=== PATIENT | male | born 1950 | race Asian ===

== ENCOUNTER 2023-08-19 10:33 | Day surgery (SDC) | payer OTHER, SELFPAY ==
[2023-08-19] VITALS (12 sets, daily range): BP systolic 12–163; BP diastolic 44–78; BMI 27.7
[2023-08-19 10:51] LABS: Hematocrit 34.2 % (39.0-52.0); Hemoglobin 11.8 g/dL (13.0-18.0); Mean Corp Hgb Conc. 34.5 g/dL (33.0-37.0); Mean Corpuscular Hgb 29.9 pg (27.0-31.0); Mean Corpuscular Volume 86.8 fL (80.0-94.0); Mean Platelet Volume 11.2 fL (7.4-10.4); Platelet Count 181 10^3/uL (130-400); Red Blood Cell Count 3.94 10^6/uL (4.70-6.10); Red Cell Dist. Width 14.3 % (11.5-14.5); White Blood Cell Count 5.9 10^3/uL (4.8-10.8)
[2023-08-19 11:04] LABS: APTT 36.2 Sec (23.4-35.0); INR 1.07; PT 14.1 Sec (11.4-14.6)
[2023-08-19 11:23] LABS: Blood Urea Nitrogen 45 mg/dl (9-20); Calcium 9.2 mg/dl (8.4-10.2); Carbon Dioxide 36 mmol/L (22-30); Chloride 90 mmol/L (98-107); Glucose 140 mg/dl (70-99); Potassium 4.8 mmol/L (3.5-5.1); Sodium 135 mmol/L (135-145); eGFR 6.82
[2023-08-19] MEDS: NSS 500 IV (12:00)
[2023-08-19 12:08] LABS: Glucose - Point of Care 126 mg/dl (70-99)
--- NOTE | 2023-08-19 12:32 | W.SUR.PREOP ---
Pre-Operative Surgical Note
-
I have examined this patient prior to the performance of the scheduled procedure.
The patient's condition is unchanged from the time of the current History and
Physical and the patient is able to undergo the scheduled procedure.
--- NOTE | 2023-08-19 12:38 | OR.RPT ---
Addendum entered and electronically signed by Jayant Carey MD 08/19/23 14:02:
ERRONEOUS NOTE. DISREGARD BELOW.
Original Note:
Operative Report
Operative Report
PROCEDURE DATE: 08/19/2023
Preoperative diagnosis:
1. End-stage renal disease on hemodialysis.
2. Concern for failing left upper extremity arteriovenous fistula.
Postoperative diagnosis: Same
Procedure:
1. Left upper extremity fistulogram and central venogram.
2. Balloon angioplasty of proximal outflow vein stenosis with 5 mm angioplasty balloon.
3. Balloon angioplasty of mid outflow vein stenosis with 5 mm angioplasty balloon.
4. Supervision and interpretation.
Surgeon: Aurelio
Bass Singer: None
Complications: None
Anesthesia: Local, sedation
Fluoroscopy:
4.0 min
4 mGy
0.55 Gy.cm2
Indications for procedure:
End-stage renal disease on hemodialysis. Had performed left upper extremity arteriovenous fistula. Subsequent fistulogram for stenosis was performed by me. Flow volume significantly improved. She had successfully used the fistula for dialysis.
However, recently noted decreased flow rates on dialysis. She was referred for evaluation. Duplex demonstrated significant stenosis in the proximal outflow. Therefore she was brought for fistulogram. Risk/benefits/alternatives were also
discussed. Patient understood all wish to proceed.
Description of procedure:
Patient was identified, brought to the operating room. Placed on the table in the supine position. After the adequate administration of anesthesia, the patient was prepped and draped in the standard surgical fashion. A standard preoperative
timeout was undertaken and everybody was in agreement with the plan.
The left upper extremity basilic vein fistula was punctured in the proximal upper arm and a peripheral facing direction using a direct duplex ultrasound guidance and a micropuncture kit. I then advanced a 4 Latvian sheath over a 0.035 inch wire.
Fistulogram was performed that demonstrated patent anastomotic region. Prior area of stenosis look better but just at the edge of that prior area, there was a high-grade stenosis. Beyond here the fistula is nicely patent. Just beyond the sheath
there was an area of diffuse moderate narrowing but not severe. Central venogram demonstrated patent central veins with no significant stenosis. At this point, I gained wire access into the brachial artery distal to the anastomosis. I then
exchanged for a 0.018 inch wire. Patient was given 3000 units of intravenous heparin. I then balloon angioplastied the proximal outflow stenosis with a 5 mm angioplasty balloon. The waist resolved nicely with the balloon. Completion angiogram
demonstrated resolution of the stenosis with good angiographic result. At this point I then was able to carefully foot my sheath and a central facing direction. I then gained wire access more centrally and exchanged over a glide catheter (after
confirming I was in the true lumen) for a 0.018 inch wire. I then performed balloon angioplasty of the stenotic area near the sheath (proved to be somewhat challenging due to the proximity of the sheath to the stenosis). There was a waist that
resolved. At this point completion angiogram demonstrated good result. There is brisk flow and a good thrill on exam. At this point is very satisfied. Wires and catheters were withdrawn. A 4-0 Monocryl pursestring stitch was placed around the
sheath entry site and was tied down as the sheath was withdrawn. Manual pressure was also applied. Hemostasis was achieved. The patient tolerated the procedure well.
--- NOTE | 2023-08-19 13:52 | OR.RPT ---
Operative Report
Operative Report
PROCEDURE DATE: 08/19/2023
Preoperative diagnosis:
1. End-stage renal disease on hemodialysis.
2. Prolonged bleeding after hemodialysis.
3. Central venous stent in-stent restenosis.
Postoperative diagnosis: Same
Procedure:
1. Left upper extremity fistulogram and central venogram.
2. Balloon angioplasty of central venous stenosis (in-stent restenosis) with 10 mm x 4 cm angioplasty balloon.
3. Supervision and interpretation.
Surgeon: Aurelio
[employer] Yard Supervisor: None
Complications: None
Anesthesia: Local, sedation
Fluoroscopy:
4.7 min
38 mGy
4.62 Gy.cm2
Indications for procedure:
End-stage renal disease on hemodialysis. Prolonged bleeding after hemodialysis to the point that he ended up in the emergency room and a stitch had to be placed in the fistula to stop the bleeding. Duplex demonstrated what appeared to be in-stent
restenosis of a central venous stent. He was therefore brought for fistulogram. Risk/benefits/alternatives were also discussed. Patient understood all wish to proceed.
Description of procedure:
Patient was identified, brought to the operating room. Placed on the table in the supine position. After the adequate administration of anesthesia, the patient was prepped and draped in the standard surgical fashion. A standard preoperative
timeout was undertaken and everybody was in agreement with the plan.
The cephalic outflow vein of the fistula was punctured in the distal upper arm just proximal to the antecubital fossa and a central facing direction using a micropuncture kit under direct duplex ultrasound guidance. A 6 Georgian sheath was then
advanced over a 0.035 inch wire. Fistulogram demonstrated tandem aneurysms of the fistula that were unchanged from prior. Widely patent outflow in the upper arm. Central venous stent at the cephalic arch was noted. In the mid to distal section
of the stent there was a severe string-like stenosis. Beyond here the more distal/central aspect of the stent was patent. Central venogram demonstrated no other central venous stenosis. At this point I selectively gained wire access beyond the
stent into the SVC. I then exchanged for a [email or web address] wire. I then performed balloon angioplasty of the stenosis with a 10 mm x 4 cm angioplasty balloon. Prolonged inflation was undertaken. Completion angiogram demonstrated an excellent result with
no residual stenosis. At this point is very satisfied. In addition, the pulsatility of the fistula had decreased and was now more thrill like. At this point I compress the fistula beyond the sheath and obtained a reflux fistulogram that
demonstrated widely patent arterial anastomosis.
Catheter and wires were all removed. 4-0 Monocryl pursestring stitch was placed around the sheath entry site and was tied down as the sheath was withdrawn, and manual pressure was also applied gently. Hemostasis was fully achieved.
The patient tolerated procedure well.
[2023-08-19 13:55] LABS: Glucose - Point of Care 108 mg/dl (70-99)
[2023-08-19] MEDS: NITROSTAT (SUBLINGUAL) 0.400000000000000022 MG SL (14:12)
== END 2023-08-19 15:45 | disposition home or self-care (01) ==
LOC: CATH 10:33
PROVIDERS: ATTENDING PHYSICIAN Surgery Vascular Surgery; FAMILY PHYSICIAN Family Medicine
DX: I12.0 Hypertensive chronic kidney disease with stage 5 chronic kidney disease or end stage renal disease (principal); N18.6 End stage renal disease; Z99.2 Dependence on renal dialysis; I25.10 Atherosclerotic heart disease of native coronary artery without angina pectoris; Z95.1 Presence of aortocoronary bypass graft; Z95.5 Presence of coronary angioplasty implant and graft; E11.22 Type 2 diabetes mellitus with diabetic chronic kidney disease; Z87.891 Personal history of nicotine dependence; Z79.4 Long term (current) use of insulin; Z79.82 Long term (current) use of aspirin; Z79.02 Long term (current) use of antithrombotics/antiplatelets
CPT/HCPCS: 36907; 36901; C1894; C1725; C1769; 76937; 80048; 82962; 85027; 85610; 85730; 86850; 86900; 86901; Q9967

== ENCOUNTER → 2024-05-09 12:49 | Outpatient (REF) | payer OTHER, SELFPAY | LOC: RAD 12:49 | PROVIDERS: ATTENDING PHYSICIAN Family Medicine | DX: R06.02 Shortness of breath (principal) | CPT/HCPCS: 71250 ==

== ENCOUNTER 2025-05-09 23:22 | Inpatient (IN) | payer OTHER, SELFPAY ==
[2025-05-09 19:24] VITALS: BP 116/57
[2025-05-09 19:42] LABS: Hematocrit 36.3 % (39.0-52.0); Hemoglobin 11.9 g/dL (13.0-18.0); Mean Corp Hgb Conc. 32.8 g/dL (33.0-37.0); Mean Corpuscular Volume 80.8 fL (80.0-94.0); Nucleated Red Blood Cells % 0 % (-); Platelet Count 167 10^3/uL (130-400); Red Cell Dist. Width 18.7 % (11.5-14.5)
[2025-05-09 20:01] LABS: ALT (SGPT) 16 U/L (0-50); AST (SGOT) 28 U/L (17-59); Albumin 4.1 g/dl (3.5-5.0); Alkaline Phosphatase 62 U/L (38-126); Blood Urea Nitrogen 40 mg/dl (9-20); Calcium 8.1 mg/dl (8.4-10.2); Carbon Dioxide 30 mmol/L (22-30); Chloride 94 mmol/L (98-107); Glucose 124 mg/dl (70-99); Potassium 4.1 mmol/L (3.5-5.1); Sodium 134 mmol/L (135-145); Total Protein 7.3 g/dl (6.3-8.2); eGFR 10.08
[2025-05-09 20:10] VITALS: BP 104/57; BMI 28.7
[2025-05-09 20:12] LABS: Troponin I 1.070 ng/ml
--- NOTE | 2025-05-09 20:39 | ED.GENMED ---
History of Present Illness
General
Chief Complaint: Breathing Problem
Time Seen by Provider: 05/09/25 20:15
History of Present Illness
History of Present Illness:
Patient presents to the emergency department with shortness of breath. He reports nonproductive cough for the past week and worsening chest pressure. He attributes this to volume overload. He notes that they are not able to take the fluid off at
dialysis secondary to hypotension. He is treated with midodrine for this. Notes that he has known coronary artery disease and his manager casino is not to intervene with any more stents at this time. He has medically managed with nitro for his
chest which he states he takes daily.
Past History
Past History
ED Past Medical History: CAD, CVA, HTN, Hypercholesterolemia, NIDDM, [place], Renal failure and Other (On dialysis Thursday)
ED Past Surgical History: Cardiac and Other
Social History
Tobacco: Former smoker
Alcohol: None
Drug: None
Personal:
Living: with family
Employment: Retired
Family History
Family History: Hypertension
Phy Exam
Physical Exam
Physical Exam:
GENERAL APPEARANCE: No acute distress, chronically ill-appearing
EYES lids/conjunctiva normal
EARS/NOSE/THROAT Mucous membranes moist, uvula midline without oral pharyngeal erythema, exudate or swelling
HEAD/NECK normocephalic atraumatic, neck is supple.
RESPIRATORY respiratory effort is normal, on nasal cannula oxygen. Bilateral rales to the bases
CARDIAC Regular rate and rhythm, no edema.
ABDOMINAL Soft, ND/NT.
MUSCLES/EXTREMITIES left upper extremity AV fistula with palpable thrill, 1+ pitting edema lower extremity bilaterally.
SKIN Warm, pink and dry. No rashes
NEUROLOGICAL Speech is clear and appropriate. Normal level of consciousness. 5/5 strength in all extremities.
Scores
Heart Failure Risk
Heart Failure Risk Score: Not Applicable
Course
Orders/Labs/Results
Orders:
Orders
05/09/25 19:26
Electrocardiogram (*1) Urgent
Reason for Study: Shortness of Breath
Chest [CR Chest - 2 Views ] Urgent
Comment:
Reason For Exam: SOB
05/09/25 19:27
EKG- Treatment ONCE
05/09/25 19:30
Comprehensive Metabolic Panel Urgent
Troponin I Urgent
05/09/25 19:31
Complete Blood Count/With Diff Urgent
Abnormal Lab Results
05/09/25 05/09/25
19:30 19:31
RBC 4.49 L 10^6/uL
(4.70-6.10)
Hgb 11.9 L g/dL
(13.0-18.0)
Hct 36.3 L %
(39.0-52.0)
MCH 26.5 L pg
(27.0-31.0)
MCHC 32.8 L g/dL
(33.0-37.0)
RDW 18.7 H %
(11.5-14.5)
MPV 11.3 H fL
(7.4-10.4)
Absolute Lymphs (auto) 0.8 L 10^3/uL
(1.2-3.4)
Absolute Monos (auto) 0.9 H 10^3/uL
(0.1-0.6)
Lymphocytes % 11.0 L %
(20.5-51.1)
Monocytes % 11.5 H %
(1.7-9.3)
Eosinophils % 6.4 H %
(0-6)
Sodium 134 L mmol/L
(135-145)
Chloride 94 L mmol/L
(98-107)
BUN 40 H mg/dl
(9-20)
Creatinine 5.5 H* mg/dL
(0.7-1.3)
Glucose 124 H mg/dl
(70-99)
Calcium 8.1 L mg/dl
(8.4-10.2)
Total Bilirubin 1.9 H mg/dl
(0.2-1.3)
Troponin I 1.070 H* ng/ml
05/09/25 19:31
05/09/25 19:30
Vital Signs
Initial and Last Documented VS:
Initial Vital Signs
Temp Pulse Resp BP Pulse Ox
98.4 F 76 16 116/57 93
05/09/25 19:24 05/09/25 19:24 05/09/25 19:24 05/09/25 19:24 05/09/25 19:24
Last Documented Vital Signs
Temp Pulse Resp BP Pulse Ox
98.4 F 70 21 112/60 90
05/09/25 19:24 05/09/25 21:15 05/09/25 21:15 05/09/25 21:00 05/09/25 21:15
*Pulse Oximetry
SaO2: 93
Oxygen Mode of Delivery: Room air
Patient hypoxic: yes
*Critical Care Note
Total Time (30-74mins, 75-104mins- exclusive of procedures): Not Applicable
ED Attending Note
-
Portions of this chart may have been created with voice recognition software.� Occasional wrong word or��sound alike� substitutions may have occurred due to the inherent limitations of voice recognition software.
Discharge Plan
Departure
Patient Disposition: Admit
Date of Disposition: 05/09/25
Time of Disposition: 22:36
Presentation/result/management discussed w/ accepting MD/DO: Hospitalist
Discharge Problem:
Pulmonary edema, ESRD (end stage renal disease)
Prescriptions:
No Action
lorazepam 1 MG tablet
1 mg PO HSPRN PRN (Reason: sleep)
Patient Comments:
08/20/2023, pt. filled this medication on 08/05/2023 for 30 tablets according to PDMP.
sevelamer carbonate 800 MG tablet
800 mg PO MEALS
cinacalcet 30 MG tablet
30 mg PO DAILY@1430
aspirin 81 MG tablet,delayed release (DR/EC)
81 mg PO DAILY@1430
clopidogrel 75 MG tablet
75 mg PO DAILY@1430
Patient Comments:
insulin lispro [Humalog KwikPen Insulin] 100 UNIT/ML insulin pen
1 - 5 unit SC AC PRN (Reason: Diabetes)
Patient Comments:
08/20/2023, pt. uses this before meals as needed on a sliding scale between 1-5 units depending on his BS.
rosuvastatin 10 MG tablet
10 mg PO HS
metoprolol succinate 50 mg tablet extended release 24 hr
50 mg PO BID
isosorbide mononitrate 30 mg Tablet Extended Release 24 Hr
30 mg PO BID
lidocaine-prilocaine 2.5-2.5 % Cream
1 applic TOPICAL TUTHSA
Patient Comments:
08/20/2023, applied to port site on dialysis days.
Renal-Li 0.8 mg Tablet
1 tab PO DAILY
insulin glargine [Lantus Solostar U-100 Insulin] 100 unit/mL (3 mL) Insulin Pen
10 unit SC HS
Vitamin C
1 tab PO DAILYPRN PRN (Reason: supplement)
acetaminophen 325 MG tablet
650 mg PO Q4HPRN PRN (Reason: mild pain/ASENCIO/temp>100.4F)
nitroglycerin 0.4 MG tablet, sublingual
0.4 mg sublingual DIRECTED
Patient Comments:
08/20/2023, pt. states that they take 3-4 tablets daily for angina.
Referrals:
Edward Robbins DO [Family Provider, Family Practice]
Interventions
Interventions:
*Risk Screen - Suicide Last Done: 05/09/25 20:10
*General Assessment Last Done: 05/09/25 20:10
*Neglect/Abuse Screening Last Done: 05/09/25 20:10
*ED- Fall Risk Assessment Last Done: 05/09/25 20:10
*ED COVID-19 Vaccine History Last Done: 05/09/25 20:10
*ED Influenza Vaccine History Last Done: 05/09/25 20:10
ED- Cardiac Assessment Last Done: 05/09/25 20:17
ED- Pulmonary Assessment Last Done: 05/09/25 20:17
Discharge Date and Time
Print Language: LATVIAN
[2025-05-09 21:00] VITALS: BP 112/60
--- NOTE | 2025-05-09 22:36 | HPS.HSE ---
Family Physician
-
Family Physician: Edward Robbins
Chief Complaint
-
Short of breath
cough
History of Present Illness
75-year-old with past medical history for coronary artery disease, CVA, hypertension, hypercholesteremia, NIDDM, end-stage renal disease on dialysis Thursday patient presents to the emergency department with shortness of breath,
cough for one week. patient did not get his full session dialysis today because he was noted hypotensive. he was given midodrine but he started having chest pain and right LE cramps. denied ASENCIO, dizzy or syncope. denied fever, chills,. denied
abdominal pain,n,v,d.
upon arrival, he was noted in pulmonary edema. admitting for further management.
Medical History
Past Medical History
Past Medical History: Reports Other
Additional Past Medical History:
End-stage renal disease, mesenteric artery insufficiency, bilateral carotid stenosis, peripheral artery disease, type 2 diabetes, hypertension, pancreatitis, neuropathy, angina
Past Surgical History: Reports Other
Additional Past Surgical History:
Coronary artery bypass graft, coronary artery disease stent, AV fistula left arm
Social History
Tobacco: Former Smoker
Alcohol: None
Drug: None
Personal:
Living: With Family
Family History
Family History: Not pertinent
Allergies / Home Medications
Allergies reflects when Allergies were last updated in [facility].
Home Medications with original date entered in [facility]
Allergy/Medication List:
Allergies
Allergy/AdvReac Type Severity Reaction Status Date / Time
Penicillins Allergy Rash Verified 08/19/23 11:51
Sulfa (Sulfonamide Allergy Rash Verified 08/19/23 11:51
Antibiotics) (Sulfa
(Sulfonamides))
sulfite (Sulfite) Allergy Rash Verified 08/19/23 11:51
Home Medications
lorazepam 1 mg tablet 1 mg PO HSPRN PRN sleep 10/26/15
sevelamer carbonate 800 mg tablet 800 mg PO MEALS renal failure 01/04/18
cinacalcet 30 mg tablet 30 mg PO DAILY@1430 HYPERPARATHYROIDISM 06/11/19
aspirin 81 mg tablet,delayed release 81 mg PO DAILY@1430 Blood clot prevention/tx 05/13/21
clopidogrel 75 mg tablet 75 mg PO DAILY@1430 Blood clot prevention/tx 05/13/21
insulin lispro 100 unit/mL subcutaneous pen (Humalog KwikPen (U-100) Insulin) 1 - 5 unit SC AC PRN Diabetes 01/23/22
rosuvastatin 10 mg tablet 10 mg PO HS High cholesterol 01/23/22
metoprolol succinate 50 mg tablet,extended release 24 hr 50 mg PO BID 07/29/23
Vitamin C 1 tab PO DAILYPRN PRN supplement 08/20/23
acetaminophen 325 mg tablet 650 mg PO Q4HPRN PRN mild pain/ASENCIO/temp>100.4F 08/20/23
insulin glargine 100 unit/mL (3 mL) subcutaneous pen (Lantus Solostar U-100 Insulin) 10 unit SC HS 08/20/23
isosorbide mononitrate 30 mg tablet,extended release 24 hr 30 mg PO BID 08/20/23
lidocaine-prilocaine 2.5 %-2.5 % topical cream 1 applic topical TUTHSA 08/20/23
nitroglycerin 0.4 mg sublingual tablet 0.4 mg sublingual DIRECTED chest pain 08/20/23
vitamin B complex-vitamin C-folic acid 0.8 mg tablet (Renal-Shala) 1 tab PO DAILY 08/20/23
Review of Systems
-
Constitutional: Reports No Symptoms
EENT: Reports No Symptoms
Respiratory: Reports Cough and Trouble Breathing
Cardiac: Reports No Symptoms and Chest Pain
Abdomen/GI: Reports No Symptoms
: Reports No Symptoms
Musculoskeletal: Reports No Symptoms
Skin: Reports No Symptoms
Neurological: Reports No Symptoms
Endocrine: Reports No Symptoms
Hematologic/Lymphatic: Reports No Symptoms
Psych: Reports No Symptoms
Physical Exam
Vital Signs
Vital Signs
Temp Pulse Resp BP Pulse Ox
98.4 F 70 21 112/60 90
05/09/25 19:24 05/09/25 21:15 05/09/25 21:15 05/09/25 21:00 05/09/25 21:15
Physical Exam
General: Well Developed, Well Nourished and No Apparent Distress
HEENT: NormoCephalic, Moist mucous membranes and Atraumatic
Respiratory: Decreased Breath Sounds
Cardiac: S1/S2 and Regular Rhythm; No Murmur or Rub
GI: Soft, Non Tender, Non Distended and Normal Bowel Sounds; No Organomegaly
Rectal: Deferred by Provider
Musculoskeletal: No Clubbing, No Cyanosis and Other (LE edema)
Skin: No Rash
Neuro: AO x 3 and Nonfocal/grossly intact
Psych: Calm
Laboratory Results
-
05/09/25 19:31
05/09/25 19:30
Laboratory Results
Total Bilirubin 1.9 mg/dl (0.2-1.3) H 05/09/25 19:30
AST 28 U/L (17-59) 05/09/25 19:30
ALT 16 U/L (0-50) 05/09/25 19:30
Alkaline Phosphatase 62 U/L (38-126) 05/09/25 19:30
Troponin I 1.070 ng/ml H* 05/09/25 19:30
Data Reviewed
-
Diagnostic Radiology: Report Reviewed by me
Lab Data: Labs Reviewed by me
Impression/Plan
-
# pulmonary edema in the setting of incomplete dialysis
# History of end-stage renal disease on dialysis
#chronic respiratory failure on 3l at home
- Nephrology consulted for dialysis
- Chest x-ray showing cardiomegaly with interstitial edema
-renal shala, cinacalcet,sevelamer continued
# Elevated troponin in setting of end-stage renal disease
- Patient has chronic chest pain
- Trend troponin
# Anemia of chronic kidney disease
- Hemoglobin 11.9, no active bleeding
- Continue to monitor
#CAD with stents
-asa and Plavix continued
-isosorbide continued
-metoprolol continued
#essential HTN/HLD
-statin continued
#DM-II
-sliding scale
-Lantus 5us at hs
-CHO diet
#DVT Prophylaxis:� Subcu heparin
#Code Status:� Full
[2025-05-09 22:48] VITALS: BP 122/66
[2025-05-09 23:00] VITALS: BP 116/62
--- NOTE | 2025-05-09 23:04 | W.PN.UPDATE ---
Update Note
Progress Note Update
This is an addendum to H&P written by EHS MANAGER Christina Ramos
I saw and examined the patient.
The EHS MANAGER's note was reviewed and I agree with the note.
Comment:
Mr. Shaikh Wild is a 75 yo man with hx ESRD on HD, CAD (s/p CABG, PCI not candidate for further revascularization), CVA, HTN, HLD presents with shortness of breath after unable to complete dialysis 2/2 low blood pressures.
Triage vitals stable. Labs with WBC 7.5, Hg 11.9, PLT 167, Na 134, K+ 4.1, Cl 94, Cr 5.5, Glucose 124.
On exam patient is AAO x 3, in no acute distress, decreased breath sounds, no wheezing. b/l LE swelling
CXR
IMPRESSION:
Cardiomegaly. As described, findings most suggestive of interstitial pulmonary edema with small bilateral pleural effusions.
Bilateral pneumonia is a differential consideration, felt to be less likely.
Fluid overload in setting of incomplete HD session
Chronic Hypotension
-admit to telemetry
-Renal consult, further fluid removal with HD
-no need for urgent HD now
-midodrine PRN
IDDM
-patient is on Lantus 10 units qhs at home
-give half dose here, adjust as needed
-IDD low
CAD
Hx CABG, multiple PCI, not candidate for further revascularization
-continue MEDICAL ESTHETICIAN aspirin, Plavix, Metop XL, Imdur, Statin
-nitro PRN
Remainder of plan per EHS MANAGER note
[2025-05-10] VITALS (7 sets, daily range): BP systolic 103–129; BP diastolic 50–63; BMI 27.9
[2025-05-10] MEDS: IMDUR (EXTENDED RELEASE) 30 MG PO ×3 (01:48→19:38)
[2025-05-10 03:08] LABS: Troponin I 1.120 ng/ml
--- NOTE | 2025-05-10 05:33 | PTCARENOTE ---
[id number] LOGISTICS DIRECTOR notified of tele tracing for review. Labs scheduled for 0600
[2025-05-10 07:24] LABS: Glucose - Point of Care 107 mg/dl (70-99)
[2025-05-10] MEDS: NOVOLOG FLEXPEN-LOW RESISTANCE SC ×2 (07:56→11:35)
[2025-05-10] MEDS: RENVELA 800 MG PO ×3 (08:00→16:48)
[2025-05-10] MEDS: HEPARIN 5000 UNITS SC ×2 (08:00→19:38)
[2025-05-10] MEDS: B COMPLEX w/VITAMIN C 1 CAPLET PO (08:00)
[2025-05-10] MEDS: TOPROL XL 50 MG PO (08:02)
[2025-05-10 08:09] LABS: Hematocrit 35.4 % (39.0-52.0); Hemoglobin 11.3 g/dL (13.0-18.0); Mean Corp Hgb Conc. 31.9 g/dL (33.0-37.0); Mean Corpuscular Volume 84.7 fL (80.0-94.0); Platelet Count 180 10^3/uL (130-400); Red Cell Dist. Width 18.9 % (11.5-14.5)
[2025-05-10 08:31] LABS: Troponin I 1.160 ng/ml
[2025-05-10 08:33] LABS: Blood Urea Nitrogen 49 mg/dl (9-20); Calcium 7.9 mg/dl (8.4-10.2); Carbon Dioxide 32 mmol/L (22-30); Chloride 93 mmol/L (98-107); Estimated Creatinine Clearance 9 ml/min; Glucose 117 mg/dl (70-99); HDL Cholesterol 45 mg/dl; LDL Cholesterol, Calculated 47 mg/dl; Magnesium 2.2 mg/dl (1.6-2.3); Potassium 4.2 mmol/L (3.5-5.1); Sodium 136 mmol/L (135-145); Very Low Density Lipoprotein 19 mg/dl (0-30); eGFR 7.42
[2025-05-10 08:52] LABS: Glycohemoglobin (HgbA1c) 6.0 % (4.0-5.6)
--- NOTE | 2025-05-10 10:07 | WOUNDNOTE ---
[facility] RN note: Patient admitted with pulmonary edema, LE edema. Patient lives with his and son. He is current with palliative care at home. He follows a culinary worker in [place] and vascular surgeon Dr. Gooden.
See H&P for complete history.
PMH: CAD, CVA, HTN, NIDDM, ESRD on HD, mesenteric arterial insufficiency, carotid stenosis, PAD, pancreatitis, neuropathy, CABG (not candidate for further revascularization), AV fistula L arm, former smoker.
Wound Location and type/assessment: Patient admitted with: L dorsal foot full thickness ulcer suspect to subcutaneous layer, pink with yellow fibrin. Scant serous drainage. L lateral ankle dermal skin tear. L upper lateral posterior ankle small dry
black scab vs dry necrotic ulcer. Pedal pulses heard via portable Doppler. Trace pedal edema. Patient denies foot pain. Patient stated he has slippers and diabetic shoes at home. He stated his L foot ulcer started when he peeled loose skin off his
foot and has had ulcer for 3 months. His culinary worker has been following and current wound care is collagen and gauze daily. Patient does his own wound care at home. Patient stated he last saw his vascular surgeon 4 months ago. Coccyx/buttocks
discolored with blanchable red skin R buttocks. Skin on heels blanchable red and dry.
Appetite: Fair.
Pressure redistribution devices in place: [employer] Accumax. Patient is mobile. He uses a walker to ambulate to bathroom. He stated he uses a walker while walking outside at home.
Plan: L foot dressing changed. Heels off bed with air chair cushion. Instructed patient pressure injury prevention measures including heel elevation off bed and to take air chair cushion when discharged. Suggested he ask CM about VN. Instructed
patient to follow up with his vascular surgeon and culinary worker.
Will confirm orders with Dr. Hernandez and discussed with ROGELIO Shah.
Care plan to be updated and will follow as needed.
Note to case management requested for discharge: VN if he qualifies.
Recommend follow up at wound care center upon discharge.
[2025-05-10] MEDS: NITROSTAT (SUBLINGUAL) 0.4 MG SL (10:17)
--- NOTE | 2025-05-10 10:45 | WOUNDNOTE ---
[facility] RN note: Patient seen around 1010. Patient admitted with pulmonary edema, LE edema. Patient lives with his and son. He is current with palliative care at home. He follows a heart doctor in [place] and vascular surgeon Dr. Gooden.
See H&P for complete history.
PMH: CAD, CVA, HTN, NIDDM, ESRD on HD, mesenteric arterial insufficiency, carotid stenosis, PAD, pancreatitis, neuropathy, CABG (not candidate for further revascularization), AV fistula L arm, former smoker.
Wound Location and type/assessment: Patient admitted with: L dorsal foot full thickness ulcer suspect to subcutaneous layer, pink with yellow fibrin. Scant serous drainage. L lateral ankle dermal skin tear. L upper lateral posterior ankle small dry
black scab vs dry necrotic ulcer. Pedal pulses heard via portable Doppler. Trace pedal edema. Patient denies foot pain. Patient stated he has slippers and diabetic shoes at home. He stated his L foot ulcer started when he peeled loose skin off his
foot and has had ulcer for 3 months. His heart doctor has been following and current wound care is collagen and gauze daily. Patient does his own wound care at home. Patient stated he last saw his vascular surgeon 4 months ago. Coccyx/buttocks
discolored with blanchable red skin R buttocks. Skin on heels blanchable red and dry.
Appetite: Fair.
Pressure redistribution devices in place: [employer] Accumax. Patient is mobile. He uses a walker to ambulate to bathroom. He stated he uses a walker while walking outside at home.
Plan: L foot dressing changed. Heels off bed with air chair cushion. Instructed patient pressure injury prevention measures including heel elevation off bed and to take air chair cushion when discharged. Suggested he ask CM about VN. Instructed
patient to follow up with his vascular surgeon and heart doctor.
Updated and confirm orders with Dr. Hernandez; defer to hospitalist if inpatient vascular evaluation indicated. Dr. Hernandez approved local wound care and was agreeable to patient seeing his vascular surgeon as outpatient, and mentioned patient has severe
atherosclerosis. Discussed with RN Alyssa.
Care plan to be updated and will follow as needed.
Note to case management requested for discharge: VN if he qualifies.
Recommend follow up at wound care center upon discharge.
--- NOTE | 2025-05-10 11:11 | CM ---
Addendum entered by Vinicio He 05/10/25 13:37:
Pt stated he has home oxygen and requires 3L NC at baseline.
Original Note:
CM following re: discharge planning.
Reviewed pt's chart, met with pt.
Pt is a 75 year old male, admitted with primary dx of pulmonary edema in the setting of incomplete dialysis. PMH: coronary artery disease, CVA, hypertension, hypercholesteremia, NIDDM, end-stage renal disease on dialysis Thursday.
Pt reports he was born and grew up in [place], emig[place] [facility] [place] years ago, resides with spouse and a son in a [facility], 2 steps to enter, has 4 supportive children. Pt reports he uses a walker as needed, on HD at [facility], , and Sat,
chair time 6:30 a.m. Pt stated his insurance [facility] pays for Lyft transport to and from HD treatment.
PCP: Edward Robbins
Pharmacy: [facility]
D/C plan: home with resumptions of outpatient HD treatment at [facility] and family support.
CM will follow with discharge plan updates as hospitalization progresses
[2025-05-10] MEDS: TESSALON PERLES 200 MG PO ×3 (11:12→21:54)
[2025-05-10 11:15] LABS: Glucose - Point of Care 137 mg/dl (70-99)
--- NOTE | 2025-05-10 11:40 | W.CON.NEPH ---
Consultation
-
Date/Time Consultation Requested: 05/09/25 [id number]
Date/Time Consultation Performed: 05/10/25 [id number]
Requesting Provider: Rosie Cintron
Performing Provider: Ciara Hicks
Reason for Consultation: ESRD
Medical History
-
Chief Complaint: SOB, cough
History of Present Illness:
75-year-old with past medical history for coronary artery disease, chr angina requires nitro on daily basis on isosorbide, CVA on ASA, clopidogrel, hypertension on metoprolol, hypotension on HD requiring midodrine, hypercholesteremia, IDDM,
end-stage renal disease on dialysis Thursday patient presents to the emergency department with shortness of breath, cough for one week. Pt reports having complete session of HD yesterday however UF was difficult to do with low BPs
and cramps. He left unit above EDW. He continued to have more SOB and cough and orthopnea hence came to the hospital. CXR shows pulm edema. denied ASENCIO, dizzy or syncope. denied fever, chills,. denied abdominal pain,n,v,d.NO sick contacts.
Nephrology asked for ESRD and dialysis management.
Past Medical History
End-stage renal disease, mesenteric artery insufficiency, bilateral carotid stenosis, peripheral artery disease, type 2 diabetes, hypertension, pancreatitis, neuropathy, angina, SHPTH
Past Surgical History: Other (Coronary artery bypass graft, coronary artery disease stent, AV fistula left arm)
Social History
Tobacco: Former Smoker
Alcohol: None
Drug: None
Personal:
Living: With Family
Family History
Family History: Not Pertinent
Allergies / Home Medications
Allergy/AdvReac Type Severity Reaction Status Date / Time
Penicillins Allergy Rash Verified 08/19/23 11:51
Sulfa (Sulfonamide Allergy Rash Verified 08/19/23 11:51
Antibiotics) (Sulfa
(Sulfonamides))
sulfite (Sulfite) Allergy Rash Verified 08/19/23 11:51
�Medication �Instructions �Recorded �Confirmed �Type
sevelamer carbonate 800 mg tablet 800 mg PO MEALS renal failure 01/04/18 05/09/25 History
cinacalcet 30 mg tablet 30 mg PO DAILY@1430 06/11/19 05/09/25 History
HYPERPARATHYROIDISM
aspirin 81 mg tablet,delayed 81 mg PO DAILY@1430 Blood clot 05/13/21 05/09/25 History
release prevention/tx
clopidogrel 75 mg tablet 75 mg PO DAILY@1430 Blood clot 05/13/21 05/09/25 History
prevention/tx
insulin lispro 100 unit/mL 1 - 5 unit SC AC PRN Diabetes 01/23/22 05/09/25 History
subcutaneous pen (Humalog KwikPen
(U-100) Insulin)
rosuvastatin 10 mg tablet 10 mg PO HS High cholesterol 01/23/22 05/09/25 History
metoprolol succinate 50 mg 50 mg PO DAILY 07/29/23 05/09/25 History
tablet,extended release 24 hr
acetaminophen 325 mg tablet 650 mg PO Q4HPRN PRN mild 08/20/23 05/09/25 History
pain/ASENCIO/temp>100.4F
insulin glargine 100 unit/mL (3 10 unit SC HS 08/20/23 05/09/25 History
mL) subcutaneous pen (Lantus
Solostar U-100 Insulin)
isosorbide mononitrate 30 mg 30 mg PO BID 08/20/23 05/09/25 History
tablet,extended release 24 hr
nitroglycerin 0.4 mg sublingual 0.4 mg sublingual DIRECTED 08/20/23 05/09/25 History
tablet chest pain
vitamin B complex-vitamin C-folic 1 tab PO DAILY 08/20/23 05/09/25 History
acid 0.8 mg tablet (Renal-Li)
Review of Systems
-
All other systems: Negative unless noted
Physical Exam
Vital Signs
Vital Signs
Temp Pulse Resp BP Pulse Ox
98 F 70 18 103/50 98
05/10/25 11:19 05/10/25 11:19 05/10/25 11:19 05/10/25 11:19 05/10/25 11:19
Lab Results
WBC 6.8 10^3/uL (4.8-10.8) 05/10/25 07:34
RBC 4.18 10^6/uL (4.70-6.10) L 05/10/25 07:34
Hgb 11.3 g/dL (13.0-18.0) L 05/10/25 07:34
Hct 35.4 % (39.0-52.0) L 05/10/25 07:34
Plt Count 180 10^3/uL (130-400) 05/10/25 07:34
Sodium 136 mmol/L (135-145) 05/10/25 07:34
Potassium 4.2 mmol/L (3.5-5.1) 05/10/25 07:34
Chloride 93 mmol/L (98-107) L 05/10/25 07:34
Carbon Dioxide 32 mmol/L (22-30) H 05/10/25 07:34
BUN 49 mg/dl (9-20) H 05/10/25 07:34
Creatinine 7.1 mg/dL (0.7-1.3) H* 05/10/25 07:34
eGFR 7.42 05/10/25 07:34
Glucose 117 mg/dl (70-99) H 05/10/25 07:34
Calcium 7.9 mg/dl (8.4-10.2) L 05/10/25 07:34
Phosphorus 5.9 mg/dl (2.5-4.5) H 05/10/25 07:34
Albumin 4.1 g/dl (3.5-5.0) 05/09/25 19:30
Physical Exam
General: Awake, Alert, Oriented, AOx3, No Distress and Nontoxic
HEENT: Anicteric, Conjunctivae Clear and Facial Symmetry
Respiratory: Crackels, Normal Excursion and Nonlabored Respirations
Cardiac: S1/S2 and Regular Rate/Rhythm
Breast: Deferred by me
Abdomen: Soft, Nontender and Nondistended
Musculoskeletal: No Cyanosis and No Edema
Skin: No Rash
Neuro: Nonfocal/Grossly Intact
Psych: Mood/afflect pleasant, Insight/judgement good and Appropriate
Vascular Access: AVF
Data Reviewed
-
Radiology: Report Reviewed by me and Discussed with Patient
Labs: Labs Reviewed by me and Discussed with Patient
Assessment/Plan
-
Impression:
SOB-vol overload
decompensated HFpEF
chronic respiratory failure on 3l at home
Elevated troponin in setting of end-stage renal disease
ESRD TTS ([facility]) secondary to DM2
Known CAD with CABG x5 in 2003 at [facility], Post CABG stenting x2 with 1 stent occluded and 1-2 grafts occluded
cath 03/2023 without interventional options
Diabetes mellitus 2
Hypertension, multidrug
hypotension on HD with midodrine
Anemia of CKD
Left arm AV fistula
2pth
Plan:
A/w vol overload, difficult UF with low BP and cramping
will arrange for UF today , use midodrine too
HD again tomorrow
he requires nitro on daily basis for angina, no targets on prior cath
only me dmanagement
wean O2
resume home meds
strict renal diet and FR
d/w pt
[2025-05-10] MEDS: FLEXBUMIN 25% FOR HEMODIALYSIS 12.5 GRAMS IV ×2 (12:40→13:53)
[2025-05-10] MEDS: MANNITOL 25% 12.5 GRAMS IV ×2 (12:45→13:53)
--- NOTE | 2025-05-10 13:34 | W.PN.HOSP.TC ---
Today's Communication/Plan
-
HD today
trend trop to peak
prn Nitro for chest pain
Assessment / Plan
Assessment / Plan
Assessment:
Acute volume overload
hx of ESRD on HD
- CXR with interstitial edema
- HD today
- Nephrology consulted
- prn midodrine for hypotension during HD
- renal shala, cinacalcet,sevelamer continued
chronic respiratory failure on 3l at home
- wean o2 as able
Elevated troponin in setting of end-stage renal disease
Hx of CAD s/p CABG and stenting - procedurally optimized
- Patient has chronic chest pain; treated with prn nitro 3-4 times daily
- trend trop to peak
- has previously been evaluated by Cardiology (PAPITO and JOVON) - not a further surgical candidate
- continue ASA/Plavix/BB/Imdur
Anemia of chronic kidney disease
- Hemoglobin 11.9, no active bleeding
- Continue to monitor
Essential HTN
- continue BP meds
HLD - statin
Type 2 DM
- continue Lantus 5 HS
- Diabetic diet
DVT ppx: SC heparin
Code: Full
Anticipated Discharge: 24 - 48 hours
Subjective/Interval History
-
Date of Service: May 10, 2025
on HD, no chest pain at present (Did have in AM, reports 3-4 episodes daily treated with Nitro)
Objective Data
-
Labs:
Laboratory Results
05/10/25
07:34
WBC 6.8
Hgb 11.3 L
Hct 35.4 L
Plt Count 180
Sodium 136
Potassium 4.2
Chloride 93 L
Carbon Dioxide 32 H
BUN 49 H
Creatinine 7.1 H*
Glucose 117 H
Calcium 7.9 L
Vital Signs:
Vital Signs
Temp Pulse Resp BP Pulse Ox
98 F 63 18 90/46 98
05/10/25 11:19 05/10/25 13:06 05/10/25 11:19 05/10/25 13:06 05/10/25 11:19
I&O
05/09/25 05/10/25 05/11/25
06:59 06:59 06:59
Intake Total 230 / 230
Balance 230 / 230
Physical Exam
-
General: No Apparent Distress
HEENT: Normocephalic and Atraumatic
Respiratory: Negative Wheezes
Cardiac: Regular Rhythm and S1/S2
GI: Soft and Nontender
Neuro: AO x 3
Psych: Calm
Data Reviewed
-
Total Time Spent with Patient (in minutes): 41
Labs: Labs Reviewed by me
[2025-05-10 14:48] LABS: Troponin I 0.999 ng/ml
--- NOTE | 2025-05-10 15:35 | W.PN.NEPH.HD ---
Assessment
-
pt seen during HD
isolated UF of 2kg with midodrine
HD again tomorrow
AVF functions fine
Progress Note - Hemodialysis
-
Date of Service: May 10, 2025
Duration: 30 minutes and 2 hours
Opti-Dialyzer: 160
Ultrafiltration: Other (2kg)
Blood Flow: 300
Dialysate Flow: 600
Heparin: no
EPO: no
[2025-05-10] MEDS: PLAVIX 75 MG PO (15:40)
[2025-05-10] MEDS: ASPIR LOW (ENTERIC COATED) 81 MG PO (15:40)
[2025-05-10] MEDS: SENSIPAR 30 MG PO (15:40)
[2025-05-10 16:36] LABS: Glucose - Point of Care 152 mg/dl (70-99)
[2025-05-10] MEDS: NOVOLOG FLEXPEN-LOW RESISTANCE 1 UNITS SC (17:27)
[2025-05-10] MEDS: LANTUS 0.05 UNITS SC (21:21)
[2025-05-10] MEDS: CRESTOR 10 MG PO (21:21)
[2025-05-10 21:22] LABS: Glucose - Point of Care 191 mg/dl (70-99)
[2025-05-11] VITALS (8 sets, daily range): BP systolic 105–131; BP diastolic 41–73; PULSE 70; O2SAT 90–96; BMI 27.7
[2025-05-11 06:47] LABS: Hematocrit 35.1 % (39.0-52.0); Hemoglobin 10.8 g/dL (13.0-18.0); Mean Corp Hgb Conc. 30.8 g/dL (33.0-37.0); Mean Corpuscular Volume 84.6 fL (80.0-94.0); Platelet Count 146 10^3/uL (130-400); Red Cell Dist. Width 18.9 % (11.5-14.5)
[2025-05-11 07:02] LABS: Blood Urea Nitrogen 78 mg/dl (9-20); Calcium 7.9 mg/dl (8.4-10.2); Carbon Dioxide 29 mmol/L (22-30); Chloride 90 mmol/L (98-107); Estimated Creatinine Clearance 7 ml/min; Glucose 140 mg/dl (70-99); Potassium 4.6 mmol/L (3.5-5.1); Sodium 132 mmol/L (135-145); eGFR 5.66
[2025-05-11 07:18] LABS: Glucose - Point of Care 114 mg/dl (70-99)
[2025-05-11] MEDS: TOPROL XL 50 MG PO (08:03)
[2025-05-11] MEDS: RENVELA 800 MG PO ×3 (08:03→17:08)
[2025-05-11] MEDS: HEPARIN 5000 UNITS SC ×2 (08:04→20:20)
[2025-05-11] MEDS: IMDUR (EXTENDED RELEASE) 30 MG PO ×2 (08:04→20:20)
[2025-05-11] MEDS: NOVOLOG FLEXPEN-LOW RESISTANCE SC ×3 (08:04→19:10)
[2025-05-11] MEDS: B COMPLEX w/VITAMIN C 1 CAPLET PO (08:04)
[2025-05-11] MEDS: TESSALON PERLES 200 MG PO ×2 (08:12→20:22)
--- NOTE | 2025-05-11 10:44 | W.PN.HOSP.TC ---
Today's Communication/Plan
-
Echo with elevated trops
add PPI in case of reflux related cough; continue Tessalon
HD today
Assessment / Plan
Assessment / Plan
Assessment:
Acute volume overload
hx of ESRD on HD
- CXR with interstitial edema
- s/p UF 05/10
- continue usual T//Thu HD schedule today
- prn midodrine for hypotension during HD
- renal shala, cinacalcet,sevelamer continued
- Nephrology following
Cough
- nonproductive
- CT with nodules, known, no acute pathology
- could be fluid related
- could be reflux related - add PPI
- continue Tessalon
- no evidence of infection, clinically or radiographically
chronic respiratory failure on 3l at home
- wean o2 as able
Elevated troponin in setting of end-stage renal disease
Hx of CAD s/p CABG and stenting - procedurally optimized
- Patient has chronic chest pain; treated with prn nitro 3-4 times daily
- trop peaked at 1.16
- check Echo
- has previously been evaluated by Cardiology (P[facility]O and [facility]) - not a further surgical candidate
- continue ASA/Plavix/BB/Imdur
Anemia of chronic kidney disease
- Hemoglobin 11.9, no active bleeding
- Continue to monitor
Essential HTN
- continue BP meds
HLD - statin
Type 2 DM
- continue Lantus 5 HS
- Diabetic diet
Hyponatremia
DVT ppx: SC heparin
Code: Full
Anticipated Discharge: Within 24 hours
Subjective/Interval History
-
Date of Service: May 11, 2025
patient reports cough; worse in laying position, improves with sitting; does improve with Tessalon as well
no production to cough
no chest pain
no fever/chills
completed UF yesterday and for HD again today
Objective Data
-
Labs:
Laboratory Results
05/11/25
05:35
WBC 6.7
Hgb 10.8 L
Hct 35.1 L
Plt Count 146
Sodium 132 L
Potassium 4.6
Chloride 90 L
Carbon Dioxide 29
BUN 78 H
Creatinine 8.9 H*
Glucose 140 H
Calcium 7.9 L
Vital Signs:
Vital Signs
Temp Pulse Resp BP Pulse Ox
99.0 F 77 16 123/55 94
05/11/25 07:25 05/11/25 08:03 05/11/25 07:25 05/11/25 08:03 05/11/25 09:23
I&O
05/10/25 05/11/25 05/12/25
06:59 06:59 06:59
Intake Total 230 / 230 480 / 480 240 / 240
Balance 230 / 230 480 / 480 240 / 240
Physical Exam
-
General: No Apparent Distress
HEENT: Normocephalic and Atraumatic
Respiratory: Negative Wheezes
Cardiac: Regular Rhythm and S1/S2
GI: Soft and Nontender
Musculoskeletal: No Edema
Neuro: AO x 3
Psych: Calm
Data Reviewed
-
Total Time Spent with Patient (in minutes): 44
Labs: Labs Reviewed by me
[2025-05-11] MEDS: PROTONIX 40 MG PO (11:45)
[2025-05-11 11:49] LABS: Glucose - Point of Care 124 mg/dl (70-99)
--- NOTE | 2025-05-11 12:52 | CM ---
CM following re: discharge planning.
Reviewed pt's chart, met with pt.
Pt and OT evaluations noted - home PT/OT recommended. CM discussed it with the pt, pt declined having home PT/OT and made a strong comment: 'I am not interested in home care'.
Pt resides with spouse and a son in a 2SH, 2 steps to enter, has 4 supportive children. Pt reports he uses a walker as needed, on HD at [facility], T, Th and Sat, chair time 6:30 a.m. Pt stated his insurance [facility] pays for
Lyft transport to and from HD treatment.
D/C plan: home with resumptions of outpatient HD treatment at [facility] and family support.
CM will follow with discharge plan updates as needed.
--- NOTE | 2025-05-11 16:39 | W.PN.NEPH.HD ---
Assessment
-
pt seen during hd
vitals stable s/p midodrine
UF as tolerates
he is still with cough and sob-CXR in am
AVF functions well
no heapring seem to bleed from needle site
Progress Note - Hemodialysis
-
Date of Service: May 11, 2025
Duration: 30 minutes and 3 hours
Potassium Bath: 2
Calcium Bath: 2.5
Opti-Dialyzer: 160
Ultrafiltration: Other (2.5-3kg)
Blood Flow: 400
Dialysate Flow: 600
Heparin: no
EPO: no
[2025-05-11] MEDS: SENSIPAR 30 MG PO (17:08)
[2025-05-11] MEDS: ASPIR LOW (ENTERIC COATED) 81 MG PO (17:09)
[2025-05-11] MEDS: PLAVIX 75 MG PO (17:09)
[2025-05-11 18:03] LABS: Glucose - Point of Care 120 mg/dl (70-99)
[2025-05-11 21:43] LABS: Glucose - Point of Care 223 mg/dl (70-99)
[2025-05-11] MEDS: CRESTOR 10 MG PO (22:11)
[2025-05-11] MEDS: LANTUS 0.05 UNITS SC (22:12)
[2025-05-12 03:09] VITALS: BP 116/63
[2025-05-12 06:00] VITALS: BMI 27.0
[2025-05-12 07:15] VITALS: BP 112/53
[2025-05-12 07:15] LABS: Glucose - Point of Care 109 mg/dl (70-99)
[2025-05-12] MEDS: NOVOLOG FLEXPEN-LOW RESISTANCE SC (09:07)
[2025-05-12] MEDS: IMDUR (EXTENDED RELEASE) 30 MG PO (09:07)
[2025-05-12] MEDS: RENVELA 800 MG PO ×2 (09:08→12:34)
[2025-05-12] MEDS: TOPROL XL 50 MG PO (09:08)
[2025-05-12] MEDS: PROTONIX 40 MG PO (09:08)
[2025-05-12] MEDS: B COMPLEX w/VITAMIN C 1 CAPLET PO (09:08)
[2025-05-12] MEDS: HEPARIN 5000 UNITS SC (09:09)
[2025-05-12] MEDS: TESSALON PERLES 200 MG PO (09:13)
--- NOTE | 2025-05-12 11:00 | CARDSERVLU ---
Echocardiogram with Lumason completed after protocol screening completed. Allergies verified.
Patent IV site: __Rt FA__
IV site flushed with 0.9% NaCl pre and post administration.
Diluted bolus method utilized to enhance visualization of ventricular garcia.
Total volume given: ___3.0_ mL
Patient tolerated all procedures well without complications.
[2025-05-12 11:10] VITALS: BP 117/59
[2025-05-12 11:27] LABS: Glucose - Point of Care 158 mg/dl (70-99)
[2025-05-12] MEDS: NOVOLOG FLEXPEN-LOW RESISTANCE 1 UNITS SC (12:35)
[2025-05-12 12:38] LABS: Hematocrit 36.2 % (39.0-52.0); Hemoglobin 11.6 g/dL (13.0-18.0); Mean Corp Hgb Conc. 32.0 g/dL (33.0-37.0); Mean Corpuscular Volume 84.0 fL (80.0-94.0); Platelet Count 142 10^3/uL (130-400); Red Cell Dist. Width 18.7 % (11.5-14.5)
--- NOTE | 2025-05-12 13:35 | W.PN.HOSP.TC ---
Today's Communication/Plan
-
dc today to home
Assessment / Plan
Assessment / Plan
Assessment:
Acute volume overload
hx of ESRD on HD
- CXR with interstitial edema
- s/p UF 05/10
- continue usual T/Th/Sat HD schedule
- prn midodrine for hypotension during HD
- renal shala, cinacalcet,sevelamer continued
- Nephrology following
Cough
- nonproductive
- CT with nodules, known, no acute pathology
- could be fluid related
- could be reflux related - add PPI
- continue Tessalon
- no evidence of infection, clinically or radiographically
- repeat CXR 05/12 with improving pulm edema
chronic respiratory failure on 3l at home
- wean o2 as able
Elevated troponin in setting of end-stage renal disease
Hx of CAD s/p CABG and stenting - procedurally optimized
- Patient has chronic chest pain; treated with prn nitro 3-4 times daily
- trop peaked at 1.16
- Echo unchanged except slightly worsening mitral regurg
- has previously been evaluated by Cardiology (P[facility]O and [facility]) - not a further surgical candidate
- continue ASA/Plavix/BB/Imdur
Anemia of chronic kidney disease
- Hemoglobin 11.9, no active bleeding
- Continue to monitor
Essential HTN
- continue BP meds
HLD - statin
Type 2 DM
- continue Lantus 5 HS
- Diabetic diet
Hyponatremia
DVT ppx: SC heparin
Code: Full
Anticipated Discharge: Today
Subjective/Interval History
-
Date of Service: May 12, 2025
resting comfortably
cough slowly improving
Objective Data
-
Labs:
Laboratory Results
05/12/25
12:20
WBC 6.8
Hgb 11.6 L
Hct 36.2 L
Plt Count 142
Sodium Pending
Potassium Pending
Chloride Pending
Carbon Dioxide Pending
BUN Pending
Creatinine Pending
Glucose Pending
Calcium Pending
Vital Signs:
Vital Signs
Temp Pulse Resp BP Pulse Ox
98.4 F 76 16 117/59 98
05/12/25 11:10 05/12/25 11:10 05/12/25 11:10 05/12/25 11:10 05/12/25 11:10
I&O
05/11/25 05/12/25 05/13/25
06:59 06:59 06:59
Intake Total 480 / 480 1200 / 1200 480 / 480
Balance 480 / 480 1200 / 1200 480 / 480
Physical Exam
-
General: No Apparent Distress
HEENT: Normocephalic and Atraumatic
Respiratory: Negative Wheezes
Cardiac: Regular Rhythm and S1/S2
GI: Soft and Nontender
Neuro: AO x 3
Psych: Calm
Data Reviewed
-
Total Time Spent with Patient (in minutes): 42
Labs: Labs Reviewed by me
--- NOTE | 2025-05-12 13:39 | W.DS.TRANS ---
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
-
Discharge Instructions:
Sleep Apnea Risk Intermediate
Discharge Diagnosis/Procedures volume overload, ESRD on HD, chronic chest pain,
nonproductive cough
Diet Restrict fluids to 48 oz,2 Gram Sodium
Additional Diets 2 gram potassium restriction
Activity As tolerated
Bathing Restrictions None
Instructions: *PCP/Other Sole Stainer Heart Failure Instructions
Stand-Alone Forms:
Changes to Home Medications: No
Discharge Medications:
DC Medications w/original date entered in [employer]
sevelamer carbonate 800 mg tablet 800 mg PO MEALS renal failure 01/04/18
cinacalcet 30 mg tablet 30 mg PO DAILY@1430 HYPERPARATHYROIDISM 06/11/19
aspirin 81 mg tablet,delayed release 81 mg PO DAILY@1430 Blood clot prevention/tx 05/13/21
clopidogrel 75 mg tablet 75 mg PO DAILY@1430 Blood clot prevention/tx 05/13/21
insulin lispro 100 unit/mL subcutaneous pen (Humalog KwikPen (U-100) Insulin) 1 - 5 unit SC AC PRN Diabetes 01/23/22
rosuvastatin 10 mg tablet 10 mg PO HS High cholesterol 01/23/22
metoprolol succinate 50 mg tablet,extended release 24 hr 50 mg PO DAILY Blood Pressure 07/29/23
acetaminophen 325 mg tablet 650 mg PO Q4HPRN PRN mild pain/ASENCIO/temp>100.4F 08/20/23
insulin glargine 100 unit/mL (3 mL) subcutaneous pen (Lantus Solostar U-100 Insulin) 10 unit SC HS Diabetes 08/20/23
isosorbide mononitrate 30 mg tablet,extended release 24 hr 30 mg PO BID Heart Disease/Condition 08/20/23
nitroglycerin 0.4 mg sublingual tablet 0.4 mg sublingual DIRECTED chest pain 08/20/23
vitamin B complex-vitamin C-folic acid 0.8 mg tablet (Renal-Li) 1 tab PO DAILY Supplement 08/20/23
benzonatate 100 mg capsule 200 mg (2 x 100 mg) PO TIDPRN PRN cough #30 caps 05/12/25
pantoprazole 40 mg tablet,delayed release 40 mg PO DAILY #30 tabs 05/12/25
Home Medication Changes
Pending Results: No
Total time spent discharging patient (in min): 42
--- NOTE | 2025-05-12 13:50 | W.PN.NEPH.PH ---
Today's Communication / Plan
-
dc
Assessment/Plan
-
Impression:
SOB-vol overload
decompensated HFpEF
chronic respiratory failure on 3l at home
Elevated troponin in setting of end-stage renal disease
ESRD TTS ([facility]) secondary to DM2
Known CAD with CABG x5 in 2003 at [facility], Post CABG stenting x2 with 1 stent occluded and 1-2 grafts occluded
cath 03/2023 without interventional options
Diabetes mellitus 2
Hypertension, multidrug
hypotension on HD with midodrine
Anemia of CKD
Left arm AV fistula
Plan:
for dc
HD tomorrow at [facility]
reminded about strict diet and fluid management
-
-
Date of Service: May 12, 2025
CC / HPI / ROS
-
Chief Complaint:
ESRD
History of Present Illness:
tolerated HD yesterday
no supplemental O2
still coughing, but less
Bp stable
Review of Systems:
no CP/SOB
Labs
-
Labs:
WBC 6.8 10^3/uL (4.8-10.8) 05/12/25 12:20
RBC 4.31 10^6/uL (4.70-6.10) L 05/12/25 12:20
Hgb 11.6 g/dL (13.0-18.0) L 05/12/25 12:20
Hct 36.2 % (39.0-52.0) L 05/12/25 12:20
Plt Count 142 10^3/uL (130-400) 05/12/25 12:20
eGFR 5.66 05/11/25 05:35
Phosphorus 5.9 mg/dl (2.5-4.5) H 05/10/25 07:34
Albumin 4.1 g/dl (3.5-5.0) 05/09/25 19:30
Physical Exam
-
Vital Signs:
Vital Signs
Temp Pulse Resp BP Pulse Ox
98.4 F 76 16 117/59 98
05/12/25 11:10 05/12/25 11:10 05/12/25 11:10 05/12/25 11:10 05/12/25 11:10
Cardiovascular:: Regular rate and rhythm
Respiratory:: Bilateral: Coarse
Lung Excursion:: Normal
Abdomen:: Nontender and Soft
Bowel Sounds:: Normal
Extremity Edema:: None: Bilateral:
--- NOTE | 2025-05-12 14:16 | CM ---
CM following re: discharge planning.
Reviewed pt's chart, met with pt and pt's daughter at bedside.
Discharge order noted. Both pt and his daughter are aware, expressed their agreement and daughter stated she will transport pt home.
IMM reviewed, placed on chart, pt has a copy.
Pt continue refusing after care VN services.
Pt resides with spouse and a son in a 2SH, 2 steps to enter, has 4 supportive children. Pt reports he uses a walker as needed, on HD at [facility], T, Th and Sat, chair time 6:30 a.m. Pt [facility] transport to and from HD treatment.
CM spoke to [facility] outpatient HD treatment center RN Leslee [phone] and she is notified that pt is discharge from today and pt will report to their center tomorrow for scheduled HD treatment. Requested pt's clinical with flow
sheets faxed to [facility] at [phone].
D/C plan: home with resumptions of outpatient HD treatment at [facility] and family support. Daughter to transport
[2025-05-12 14:29] LABS: Blood Urea Nitrogen 72 mg/dl (9-20); Calcium 8.4 mg/dl (8.4-10.2); Carbon Dioxide 28 mmol/L (22-30); Chloride 93 mmol/L (98-107); Estimated Creatinine Clearance 8 ml/min; Glucose 148 mg/dl (70-99); Potassium 4.3 mmol/L (3.5-5.1); Sodium 133 mmol/L (135-145); eGFR 6.43
--- NOTE | 2025-05-15 11:12 | W.HF.CON ---
Heart Failure
- LV Function
Left ventricular function study result: LV Ejection fraction >/= 50%
Ejection Fraction Percentage: 50-55
- ARNI
Patient already on ARNI: No
Heart Failure ARNI Not Indicated: LV Ejection Fraction >/= 40%
- ACEI/ARB
Patient already on ACEI/ARB: No
Heart Failure ACEI/ARB Not Indicated: LV Ejection Fraction > 40%
- Beta Edwina
Patient already on Evidence Based Beta Edwina: Yes
- Mineralocorticord Receptor Antagonist
Patient already on MRA: No
Heart Failure MRA Not Indicated: LV Ejection Fraction > 40%
- SGLT-2 Inhibitor
Patient already on SGLT-2 Inhibitor: No
Heart Failure SGLT-2 Inhibitor Contraindication: Patient currently on Dialysis
Heart Failure SGLT-2 Inhibitor Not Indicated: LV Ejection Fraction >40%
- NYHA CHF Classification
NYHA CHF Classification Level: Class III - Symptoms w/ min exertion, interferes w/ nml daily activity (ESRD)
- ACC/AHA Stage
ACC/AHA Stage: Stage C: Symptomatic Heart Failure
== END 2025-05-12 14:24 | disposition home or self-care (01) | DRG 640 ==
LOC: 2 SOUTH 23:22
PROVIDERS: Emergency Medicine; Registered Nurse; ADMITTING PHYSICIAN Student in an Organized Health Care Education/Training Program; ATTENDING PHYSICIAN Internal Medicine; EMERGENCY PHYSICIAN Emergency Medicine; FAMILY PHYSICIAN Family Medicine; OTHER PHYSICIAN Internal Medicine
DX: E87.70 Fluid overload, unspecified (principal); I50.33 Acute on chronic diastolic (congestive) heart failure; N18.6 End stage renal disease; J96.10 Chronic respiratory failure, unspecified whether with hypoxia or hypercapnia; I13.2 Hypertensive heart and chronic kidney disease with heart failure and with stage 5 chronic kidney disease, or end stage renal disease; I5A Non-ischemic myocardial injury (non-traumatic); Z87.891 Personal history of nicotine dependence; E87.1 Hypo-osmolality and hyponatremia; Z99.2 Dependence on renal dialysis; D63.1 Anemia in chronic kidney disease; I25.119 Atherosclerotic heart disease of native coronary artery with unspecified angina pectoris; Z95.5 Presence of coronary angioplasty implant and graft; I95.89 Other hypotension; E11.22 Type 2 diabetes mellitus with diabetic chronic kidney disease; Z79.4 Long term (current) use of insulin; G89.29 Other chronic pain; E11.51 Type 2 diabetes mellitus with diabetic peripheral angiopathy without gangrene; I95.3 Hypotension of hemodialysis; Z79.02 Long term (current) use of antithrombotics/antiplatelets; Z79.82 Long term (current) use of aspirin; Z79.899 Other long term (current) drug therapy; Z86.73 Personal history of transient ischemic attack (TIA), and cerebral infarction without residual deficits
CPT/HCPCS: 71046; 80048; 80053; 80061; 82962; 83036; 83735; 84100; 84443; 84484; 85025; 85027; 87070; 93005; 93306; 97162; 97166; 99285; G0257; P9047; Q9950

== ENCOUNTER 2025-05-26 15:56 | Observation (INO) | payer OTHER, SELFPAY ==
[2025-05-26 12:27] VITALS: BP 119/55
--- NOTE | 2025-05-26 13:38 | ED.GENMED ---
History of Present Illness
General
Chief Complaint: Breathing Problem
Source: patient
Exam Limitations: none
Time Seen by Provider: 05/26/25 13:09
History of Present Illness
History of Present Illness:
75-year-old male complaining of ongoing cough shortness of breath with exertion and chest pressure with exertion. Was admitted recently for similar symptoms. Bumped his troponin at that time. [place] to be chronic CAD. His dialysis sessions have
been cut short because of side effects.
Past History
Past History
ED Past Medical History: CAD, CVA, HTN, Hypercholesterolemia, NIDDM, [place], Renal failure and Other (On dialysis Thursday)
ED Past Surgical History: Cardiac and Other
Social History
Tobacco: Former smoker
Alcohol: None
Drug: None
Personal:
Living: with family
Employment: Retired
Family History
Family History: Hypertension
Review of Systems
Review of Systems
All Other Systems: Not applicable
Constitutional: Denies fever
Phy Exam
Physical Exam
Physical Exam:
GENERAL: Alert and oriented in no apparent distress. Chronically ill-appearing.
EYE: Orbits normal.
NECK: Supple, no significant adenopathy.
ENT: Pharynx without erythema
CARDIAC: Regular rate and rhythm without any obvious murmurs.
LUNGS: Rales in both bases
ABDOMEN: Soft, without focal tenderness or distention
NEUROLOGICAL: Alert and oriented , grossly non-focal
SKIN: Warm and dry, no rash or lesion, no discoloration, skin intact.
MUSCULOSKELETAL: No edema,no deformity.Good color. Shunt left arm
PSYCH: Normal and appropriate interaction.
Scores
Heart Failure Risk
Heart Failure Risk Score: Not Applicable
Course
Orders/Labs/Results
Orders:
Orders
05/26/25 Breakfast
1800 calorie (15 carb) Diabetic
At Your Request: Full Participation
05/26/25 13:16
IV Insert/Care/Rem.- Treatment PRN
Pulse Ox/cont/shift [RESP] Stat
Quantity: 1
05/26/25 13:20
Electrocardiogram (*1) Stat
Reason for Study: Other
Other Reason for Exam: chest pain
Cardiac Monitoring- Treatment ONCE
EKG- Treatment ONCE
CR Chest - 2 Views Urgent
Comment:
Reason For Exam: cough
05/26/25 14:07
Basic Metabolic Panel Urgent
Complete Blood Count/With Diff Urgent
Troponin I Urgent
05/26/25 15:38
Admit/Transfer Patient As Directed
Co-Sign Provider:
Level of Care: Observation services
Assign to:: Telemetry
Physician / Group: adela oliveira
Diagnosis: chest pain
Reason for Telemetry: Chest Pain syndromes
Date to Stop Telemetry: 05/28/25
Time to Stop Telemetry: 11:00
05/26/25 15:39
PRN Pain Medication Management As Directed
May give lesser potent ordered pain med per pt: Yes
preference::
Protocol:: Medication orders for pain may be administered in a
manner that supports deferring to patient preference
when the pt is:
- Requesting an ordered lesser potent pain medication.
Least to most potent pain medications are defined
as: acetaminophen < NSAID < tramadol < opioids
(morphine, oxycodone, hydromorphone).
- Requesting a lesser dose of the same medication IF
ORDERED.
- Requesting a less intrusive route of administration
if both routes are prescribed by the provider (PO <
IV).
05/26/25 15:40
Code Status As Directed
Resuscitation Status: Full Code
05/28/25 11:00
DC Protocol for Telemetry ONCE
Abnormal Lab Results
05/26/25
14:07
RBC 4.02 L 10^6/uL
(4.70-6.10)
Hgb 10.7 L g/dL
(13.0-18.0)
Hct 34.8 L %
(39.0-52.0)
MCH 26.6 L pg
(27.0-31.0)
MCHC 30.7 L g/dL
(33.0-37.0)
RDW 18.4 H %
(11.5-14.5)
MPV 10.8 H fL
(7.4-10.4)
Absolute Lymphs (auto) 0.7 L 10^3/uL
(1.2-3.4)
Absolute Monos (auto) 0.8 H 10^3/uL
(0.1-0.6)
Absolute Eos (auto) 0.8 H 10^3/uL
(0-0.7)
Lymphocytes % 10.9 L %
(20.5-51.1)
Monocytes % 11.7 H %
(1.7-9.3)
Eosinophils % 12.0 H %
(0-6)
Sodium 134 L mmol/L
(135-145)
Chloride 95 L mmol/L
(98-107)
Carbon Dioxide 31 H mmol/L
(22-30)
BUN 50 H mg/dl
(9-20)
Creatinine 6.5 H* mg/dL
(0.7-1.3)
Calcium 8.3 L mg/dl
(8.4-10.2)
Troponin I 0.039 H* ng/ml
05/26/25 14:07
05/26/25 14:07
Vital Signs
Initial and Last Documented VS:
Initial Vital Signs
Temp Pulse Resp BP Pulse Ox
98.2 F 66 18 119/55 100
05/26/25 12:27 05/26/25 12:27 05/26/25 12:27 05/26/25 12:27 05/26/25 12:27
Last Documented Vital Signs
Temp Pulse Resp BP Pulse Ox
98.2 F 63 18 119/55 94
05/26/25 12:27 05/26/25 18:30 05/26/25 12:27 05/26/25 12:27 05/26/25 18:30
*Radiology
Radiology exam reviewed: radiology read reviewed (Cardiomegaly. Small effusions)
*Pulse Oximetry
SaO2: 100
Nasal Cannula flow liters per minute: 2
Patient hypoxic: yes
*EKG
Interpreted by ED Provider?: Yes
Interpretation: abnormal
Comparison EKG: changes noted
Heart Rate: 66
Rate: normal
Rhythm: sinus
[place]: normal axis
Interval: first degree heart block
QRS Pattern: poor R-wave progression
Ischemia: non-specific ST changes
*Critical Care Note
Total Time (30-74mins, 75-104mins- exclusive of procedures): Not Applicable
ED Attending Note
-
Portions of this chart may have been created with voice recognition software.� Occasional wrong word or��sound alike� substitutions may have occurred due to the inherent limitations of voice recognition software.
Discharge Plan
Departure
Patient Disposition: Admit
Date of Disposition: 05/26/25
Time of Disposition: 15:18
Presentation/result/management discussed w/ accepting MD/DO: Renal/cardiology
Discharge Problem:
Progressive angina, History of renal failure, CHF
Interventions
Interventions:
*Risk Screen - Suicide Last Done: 05/26/25 12:27
*Neglect/Abuse Screening Last Done: 05/26/25 12:27
ED- Cardiac Assessment Last Done: 05/26/25 18:30
ED- Pulmonary Assessment Last Done: 05/26/25 18:30
[2025-05-26 14:00] VITALS: BMI 28.3
[2025-05-26 14:22] LABS: Hematocrit 34.8 % (39.0-52.0); Hemoglobin 10.7 g/dL (13.0-18.0); Mean Corp Hgb Conc. 30.7 g/dL (33.0-37.0); Mean Corpuscular Volume 86.6 fL (80.0-94.0); Nucleated Red Blood Cells % 0 % (-); Platelet Count 193 10^3/uL (130-400); Red Cell Dist. Width 18.4 % (11.5-14.5)
[2025-05-26 14:40] LABS: Blood Urea Nitrogen 50 mg/dl (9-20); Calcium 8.3 mg/dl (8.4-10.2); Carbon Dioxide 31 mmol/L (22-30); Chloride 95 mmol/L (98-107); Estimated Creatinine Clearance 10 ml/min; Glucose 98 mg/dl (70-99); Potassium 5.1 mmol/L (3.5-5.1); Sodium 134 mmol/L (135-145); eGFR 8.25
[2025-05-26 14:45] LABS: Troponin I 0.039 ng/ml
--- NOTE | 2025-05-26 14:56 | W.CON.NEPH ---
Consultation
-
Date/Time Consultation Requested: 05/26/25 300PM
Date/Time Consultation Performed: 05/2425 315pm
Requesting Provider: Dr. Leiva
Performing Provider: Dr. Vargas
Reason for Consultation: ESRD
Medical History
-
Chief Complaint: ESRD
History of Present Illness:
75-year-old with past medical history for coronary artery disease, chr angina requires nitro on daily basis on isosorbide, CVA on ASA, clopidogrel, hypertension on metoprolol, hypotension on HD requiring midodrine, hypercholesteremia, IDDM,
end-stage renal disease on dialysis Thursday patient presents to the emergency department with shortness of breath and severe cramping. He had one hour yesterday at HD unit then cramped and bp dropped and it was stopped. We were
consulted for endstage renal disease.
Past Medical History
End-stage renal disease, mesenteric artery insufficiency, bilateral carotid stenosis, peripheral artery disease, type 2 diabetes, hypertension, pancreatitis, neuropathy, angina, SHPTH
Past Surgical History: Other (Coronary artery bypass graft, coronary artery disease stent, AV fistula left arm)
Social History
Tobacco: Former Smoker
Alcohol: None
Drug: None
Personal:
Living: With Family
Family History
Family History: Not Pertinent
Allergies / Home Medications
Allergy/AdvReac Type Severity Reaction Status Date / Time
Penicillins Allergy Rash Verified 05/26/25 12:27
Sulfa (Sulfonamide Allergy Rash Verified 05/26/25 12:27
Antibiotics) (Sulfa
(Sulfonamides))
sulfite (Sulfite) Allergy Rash Verified 05/26/25 12:27
�Medication �Instructions �Recorded �Confirmed �Type
sevelamer carbonate 800 mg tablet 800 mg PO MEALS renal failure 01/04/18 05/09/25 History
cinacalcet 30 mg tablet 30 mg PO DAILY@1430 06/11/19 05/09/25 History
HYPERPARATHYROIDISM
aspirin 81 mg tablet,delayed 81 mg PO DAILY@1430 Blood clot 05/13/21 05/09/25 History
release prevention/tx
clopidogrel 75 mg tablet 75 mg PO DAILY@1430 Blood clot 05/13/21 05/09/25 History
prevention/tx
insulin lispro 100 unit/mL 1 - 5 unit SC AC PRN Diabetes 01/23/22 05/09/25 History
subcutaneous pen (Humalog KwikPen
(U-100) Insulin)
rosuvastatin 10 mg tablet 10 mg PO HS High cholesterol 01/23/22 05/09/25 History
metoprolol succinate 50 mg 50 mg PO DAILY Blood Pressure 07/29/23 05/09/25 History
tablet,extended release 24 hr
acetaminophen 325 mg tablet 650 mg PO Q4HPRN PRN mild 08/20/23 05/09/25 History
pain/ASENCIO/temp>100.4F
insulin glargine 100 unit/mL (3 10 unit SC HS Diabetes 08/20/23 05/09/25 History
mL) subcutaneous pen (Lantus
Solostar U-100 Insulin)
isosorbide mononitrate 30 mg 30 mg PO BID Heart 08/20/23 05/09/25 History
tablet,extended release 24 hr Disease/Condition
nitroglycerin 0.4 mg sublingual 0.4 mg sublingual DIRECTED 08/20/23 05/09/25 History
tablet chest pain
vitamin B complex-vitamin C-folic 1 tab PO DAILY Supplement 08/20/23 05/09/25 History
acid 0.8 mg tablet (Renal-Li)
benzonatate 100 mg capsule 200 mg (2 x 100 mg) PO TIDPRN PRN 05/12/25 Rx
cough #30 caps
pantoprazole 40 mg tablet,delayed 40 mg PO DAILY #30 tabs 05/12/25 Rx
release
Review of Systems
-
History Source: Patient
All other systems: Negative unless noted
Constitutional: Weight Gain and Fatigue
Respiratory: Trouble Breathing
Cardiac: Chest Pain (chronic angina)
: Other (anuric)
Musculoskeletal: Edema and Other (cramping on HD)
Skin: Other (cyanotic feet)
Physical Exam
Vital Signs
Vital Signs
Temp Pulse Resp BP Pulse Ox
98.2 F 66 18 119/55 99
05/26/25 12:27 05/26/25 12:27 05/26/25 12:27 05/26/25 12:27 05/26/25 14:00
Lab Results
05/26/25 14:07
05/26/25 14:07
WBC 6.7 10^3/uL (4.8-10.8) 05/26/25 14:07
RBC 4.02 10^6/uL (4.70-6.10) L 05/26/25 14:07
Hgb 10.7 g/dL (13.0-18.0) L 05/26/25 14:07
Hct 34.8 % (39.0-52.0) L 05/26/25 14:07
Plt Count 193 10^3/uL (130-400) 05/26/25 14:07
Sodium 134 mmol/L (135-145) L 05/26/25 14:07
Potassium 5.1 mmol/L (3.5-5.1) 05/26/25 14:07
Chloride 95 mmol/L (98-107) L 05/26/25 14:07
Carbon Dioxide 31 mmol/L (22-30) H 05/26/25 14:07
BUN 50 mg/dl (9-20) H 05/26/25 14:07
Creatinine 6.5 mg/dL (0.7-1.3) H* 05/26/25 14:07
eGFR 8.25 05/26/25 14:07
Glucose 98 mg/dl (70-99) 05/26/25 14:07
Calcium 8.3 mg/dl (8.4-10.2) L 05/26/25 14:07
Physical Exam
General: AOx3, Nontoxic ,mild resp. distress, chronically ill appearing
HEENT: PERRL, EOMI, Anicteric, Conjunctivae Clear, Ear/Nose Intact, Hearing Normal, Oropharynx Clear/Moist, Dentition Intact, Facial Symmetry, Neck Supple, Neck: Trachea Midline, No JVD and No Thyromegaly, no Bruits
Respiratory: crackles to auscultation bilaterally with normal lung excursion
Cardiac: S1/S2 and Regular Rate/Rhythm
Breast: Deferred by me
Abdomen: Soft, Nontender, Nondistended, Normal Bowel Sounds and No Hepatosplenomegaly
Rectal: Deferred by Provider
Genito-urinary: No Costovertebral Tenderness
Extremities: No Clubbing, No Cyanosis and trace pitting pretibial edema cyanotic changes along feet
Skin: No Rash or open lesions, cyanosis of
Neuro: Nonfocal/Grossly Intact, CN II-XII (Intact) and Strength (Musculoskeletal exam 5 out of 5 both upper and lower extremities)
Hematologic/Lymphatic: No Cervical Lymphadenopathy, No Submandibular Lymphadenopathy and No Supraclavicular Lymphadenopathy
Psych: Mood/afflect pleasant, Insight/judgement good and Appropriate
Vascular: plus 1 pedal and radial pulses
General: Awake, Alert, Oriented, AOx3, No Distress and Nontoxic
HEENT: Anicteric, Conjunctivae Clear and Facial Symmetry
Respiratory: Crackels, Normal Excursion and Nonlabored Respirations
Cardiac: S1/S2 and Regular Rate/Rhythm
Breast: Deferred by me
Abdomen: Soft, Nontender and Nondistended
Musculoskeletal: No Cyanosis and No Edema
Skin: No Rash
Neuro: Nonfocal/Grossly Intact
Psych: Mood/afflect pleasant, Insight/judgement good and Appropriate
Vascular Access: AVF (Left upper extremity with good thrill and bruit)
Data Reviewed
-
Radiology: Report Reviewed by me (Chest x-ray personally reviewed notable for moderate interstitial edema)
Medical Tests (Nuc Med, Echo etc): Other (EKG report reviewed on admission sinus rhythm with first-degree AV block anterior infarct pattern lateral ischemic changes)
Labs: Labs Reviewed by me (BMP CBC)
Old Records: Reviewed (Reviewed previous nephrology consultation from 05/09/2025 for ESRD and electronic medical)
Assessment/Plan
-
Impression:
ESRD Thursday at [facility]
SOB
decompensated HFpEF
Profound cramping on dialysis
chronic respiratory failure on 3l at home
Elevated troponin in setting of end-stage renal disease
Known CAD with CABG x5 in 2003 at [facility], Post CABG stenting x2 with 1 stent occluded and 1-2 grafts occluded
cath 03/2023 without interventional options
Diabetes mellitus 2
Hypertension, multidrug
hypotension on HD with midodrine
Anemia of CKD
Left arm AV fistula
2pth
Hyperphosphatemia
Plan:
- Next dialysis will be provided tomorrow orders written, I will do my best to ultrafiltrate him and support his blood pressure with midodrine mannitol and albumin (but these interventions are not available in the outpatient units)
- HUMBERTO therapy will be provided for anemia
- Maintain sevelamer for hyperphosphatemia
- Maintain Cinacalcet for secondary hyperparathyroidism
- Provide midodrine on dialysis to support hemodynamically during UF
Unfortunately the patient's ischemic cardiomyopathy is hindering our ability to dialyze him. Hemodynamically it is becoming more difficult to UF him due to his ischemic cardiac burden
He cramps on dialysis persistently likely due to decreased perfusion pressure from his ischemic cardiomyopathy and likely the existence of peripheral vascular disease
I will however check magnesium levels
I believe the patient is at stage in regards to his ischemic cardiomyopathy, for which he has chronic ongoing angina
Cardiology no longer has any beneficial interventions to offer
--- NOTE | 2025-05-26 15:19 | HPS.HSE ---
Family Physician
-
Family Physician: INTERVIEWE UNKNOWN - PT NOT
Chief Complaint
-
sob,chest pain
History of Present Illness
75-year-old with past medical history for CAD, CVA, hypertension, hypercholesteremia, NIDDM, [place], renal failure presented to us with chronic cough, chronic chest pain. patient stated every time he gets dialyzed, his BP drops for which they have to
give me midodrine. during dialysis he gets legs cramps for which dialysis nurses gives him fluids and he gets sob an cough from the fluids. patient also complained of chest pain with any light activity. for past few days, he is very weak and off
balance. patient complained of chills. denied fever, ASENCIO, dizzy or syncope.denied abdominal pain, nausea, vomiting and diarrhea. he does not make any urine. He had an follow up appointment with his PCP today, and who sent him to ER due to the
recurrent chest pain.
admitting for further management.
Medical History
Past Medical History
Past Medical History: Reports Other
Additional Past Medical History:
End-stage chronic kidney disease, mesenteric artery insufficiency, carotid stenosis bilateral, PAD peripheral artery disease, type 2 diabetes, hypertension, pancreatitis, neuropathy,
Past Surgical History: Reports Other
Additional Past Surgical History:
Coronary artery bypass graft, cardiac stent, left arm AV fistula
Social History
Tobacco: Former Smoker
Alcohol: None
Drug: None
Personal:
Living: With Family
Family History
Family History: Not pertinent
Allergies / Home Medications
Allergies reflects when Allergies were last updated in [facility].
Home Medications with original date entered in [facility]
Allergy/Medication List:
Allergies
Allergy/AdvReac Type Severity Reaction Status Date / Time
Penicillins Allergy Rash Verified 05/26/25 12:27
Sulfa (Sulfonamide Allergy Rash Verified 05/26/25 12:27
Antibiotics) (Sulfa
(Sulfonamides))
sulfite (Sulfite) Allergy Rash Verified 05/26/25 12:27
Home Medications
sevelamer carbonate 800 mg tablet 800 mg PO MEALS renal failure 01/04/18
cinacalcet 30 mg tablet 60 mg PO DAILY@1430 HYPERPARATHYROIDISM 06/11/19
aspirin 81 mg tablet,delayed release 81 mg PO DAILY@1430 Blood clot prevention/tx 05/13/21
clopidogrel 75 mg tablet 75 mg PO DAILY@1430 Blood clot prevention/tx 05/13/21
insulin lispro 100 unit/mL subcutaneous pen (Humalog KwikPen (U-100) Insulin) 1 - 5 unit SC AC PRN Diabetes 01/23/22
rosuvastatin 10 mg tablet 10 mg PO HS High cholesterol 01/23/22
metoprolol succinate 50 mg tablet,extended release 24 hr 50 mg PO DAILY Blood Pressure 07/29/23
acetaminophen 325 mg tablet 650 mg PO Q4HPRN PRN mild pain/ASENCIO/temp>100.4F 08/20/23
insulin glargine 100 unit/mL (3 mL) subcutaneous pen (Lantus Solostar U-100 Insulin) 10 unit SC HS Diabetes 08/20/23
isosorbide mononitrate 30 mg tablet,extended release 24 hr 30 mg PO QPM Heart Disease/Condition 08/20/23
nitroglycerin 0.4 mg sublingual tablet 0.4 mg sublingual [id number] PRN chest pains 08/20/23
vitamin B complex-vitamin C-folic acid 0.8 mg tablet (Renal-Shala) 1 tab PO DAILY Supplement 08/20/23
benzonatate 100 mg capsule 200 mg (2 x 100 mg) PO TIDPRN PRN cough #30 caps 05/12/25
pantoprazole 40 mg tablet,delayed release 40 mg PO DAILY #30 tabs 05/12/25
lorazepam 1 mg tablet 1 mg PO DAILYPRN PRN anxiety 05/26/25
midodrine 2.5 mg tablet 2.5 mg PO DIRECTED 05/26/25
Review of Systems
-
Constitutional: Reports No Symptoms
EENT: Reports No Symptoms
Respiratory: Reports Cough and Trouble Breathing
Cardiac: Reports Chest Pain
Abdomen/GI: Reports No Symptoms
: Reports No Symptoms
Musculoskeletal: Reports No Symptoms
Skin: Reports No Symptoms
Neurological: Reports No Symptoms
Endocrine: Reports No Symptoms
Hematologic/Lymphatic: Reports No Symptoms
Psych: Reports No Symptoms
Physical Exam
Vital Signs
Vital Signs
Temp Pulse Resp BP Pulse Ox
98.2 F 66 18 119/55 99
05/26/25 12:27 05/26/25 12:27 05/26/25 12:27 05/26/25 12:27 05/26/25 14:00
Physical Exam
General: Well Developed, Well Nourished and No Apparent Distress
HEENT: NormoCephalic, Moist mucous membranes and Atraumatic
Respiratory: Decreased Breath Sounds
Cardiac: S1/S2 and Regular Rhythm; No Murmur or Rub
GI: Soft, Non Tender, Non Distended and Normal Bowel Sounds; No Organomegaly
Rectal: Deferred by Provider
Musculoskeletal: No Clubbing, No Cyanosis and No Edema
Skin: No Rash
Neuro: AO x 3 and Nonfocal/grossly intact
Psych: Calm
Laboratory Results
-
05/26/25 14:07
05/26/25 14:07
Laboratory Results
Troponin I 0.039 ng/ml H* 05/26/25 14:07
Data Reviewed
-
Lab Data: Labs Reviewed by me
Impression/Plan
-
# recurrent Chest pain/short of breath/cough
# Chronic coronary artery disease s/p CABG and stent
# Chronic trope elevation in setting of CKD
- Continue to trend Trope
- Chest x-ray pending
- EKG with sinus rhythm with first-degree AV block
-asa,Plavix,Imdur,metoprolol continued
-cardiology consulted
# Anemia of chronic disease
- Hemoglobin stable at 10.7, no active bleed
- Continue to monitor
# End-stage renal disease on dialysis
- Nephrology consulted
-cinacalcet,renal shala,sevelamer continued
#Chronic respiratory failure on 3l at home
- wean o2 as able
Anemia of chronic kidney disease
- Hemoglobin 11.9, no active bleeding
- Continue to monitor
#GERD
-PPI continued
#Essential HTN
- continue BP meds
#HLD - statin
#Type 2 DM
- continue Lantus 5 HS
-sliding scale
- Diabetic diet
DVT ppx: SC heparin
Code: Full
--- NOTE | 2025-05-26 15:21 | W.PN.UPDATE ---
Update Note
Progress Note Update
This note serves as an addendum to the H&P by supervisor inspection COURTNEYheba FRANCHESKA�
HPI
75M HX CAD, CVA, HTN, Hypercholesterolemia, NIDDM, [place], ESRD on HD ( TTS) pw recurring cp/sob cough.
PHX; see above
Relevant VS
Temp Pulse Resp BP Pulse Ox
98.2 F 66 18 119/55 99
05/26/25 12:27 05/26/25 12:27 05/26/25 12:27 05/26/25 12:27 05/26/25 14:00
PE
General: No Apparent Distress
HEENT: Normocephalic and Atraumatic
Respiratory: Negative Wheezes
Cardiac: Regular Rhythm and S1/S2
GI: Soft and Nontender
Neuro: AO x 3
Psych: Calm
Relevant data�
05/12/25 05/26/25
12:20 14:07
WBC 6.7
Hgb 11.6 L 10.7 L
Plt Count 142 193
Sodium 133 L 134 L
Potassium 5.1
Chloride 93 L 95 L
Carbon Dioxide 31 H
BUN 50 H
Creatinine 8.0 H* 6.5 H*
eGFR 6.43 8.25
Glucose 98
Calcium 8.3 L
Troponin I 0.039 H*
EKG
SINUS RHYTHM WITH 1ST DEGREE A-V BLOCK
LOW VOLTAGE QRS IN LIMB LEADS
ANTERIOR INFARCT (CITED ON OR BEFORE 16-May-2021)
ST and T WAVE ABNORMALITY, CONSIDER LATERAL ISCHEMIA
ABNORMAL ECG
WHEN COMPARED WITH ECG OF 10-May-2025 10:19,
PAC IS NO LONGER PRESENT
T WAVE INVERSION MORE EVIDENT IN LATERAL LEADS
Confirmed by BHARGAVI MULLEN MD ([id number]) on 05/26/2025 2:34:32 PM
05/12/25 TTE
1. Normal left ventricular size and function.
2. Ejection fraction is 50-55% by visual assessment. with possible mild Hypokinesis of the distal anterolateral wall.
3. Stage II diastolic dysfunction suggestive of abnormal relaxation and increased filling pressures.
4. Mild concentric left ventricular hypertrophy.
5. Normal right ventricular size with low normal RV function.
6. Aortic sclerosis without stenosis.
7. Mild to moderate mitral valve regurgitation.
8. Mild tricuspid regurgitation. Estimated pulmonary artery pressure of 50 mmHg assuming a right atrial pressure of 3 mmHg.
9. Compared to a prior transthoracic echocardiogram study from 03/23/23 Mitral regurgitation is slightly worse.
Last hospitalist admission: 05/09/2025 - 05/12/2025
DISCHARGE DIAGNOSES:
1. Volume overload.
2. End-stage renal disease on hemodialysis.
3. Chronic chest pain.
4. Nonproductive cough.
ASSESSMENT & PLAN
Pending Rx reconciliation
Recurrent CP and chr cough
Chr abn ST T abnormalities
Elevated troponin in setting of ESRD
Known CAD with CABG x5 in 2003 at [facility]
HX Post CABG stenting x2 with 1 stent occluded and 1-2 grafts occluded cath 03/2023 without interventional options
Of note:previously been evaluated by Cardiology ( and [facility]) - not a further surgical candidate
- Trend TPNI
- c/w OWNER/OPERATOR DAPL, IMN, Metoprolol XL
- [facility] Card consulted
SOB and chr cough
HX chr HFpEF
HX chronic respiratory failure on 3l at home
- c/w Home O2
- Pending final CXR report
- Vol is managed by HD ( TTS)
- Await [facility] card evaluation
ESRD TTS ([facility]) due to DM2
HD via Left arm AV fistula
Anemia of CKD
- prn midodrine for hypotension during HD
- renal Li, cinacalcet,sevelamer continued
- strict diet and fluid management encouraged
- HD due for Sat
- Renal consult
IDDM
- c/w OWNER/OPERATOR Lantus
- add ISS low
Benign Hypertension, multidrug
Hypotension on HD with midodrine
Cough
- nonproductive
- Prior HX CT with nodules, known, no acute pathology
- continue Tessalon
- f/u admission CXR final report
Chronic respiratory failure on 3l at home
- c/w OWNER/OPERATOR Home O2
Elevated troponin in setting of end-stage renal disease
Hx of CAD s/p CABG and stenting - procedurally optimized
- Patient has chronic chest pain; treated with prn nitro 3-4 times daily
- trop peaked at 1.16
- Echo unchanged except slightly worsening mitral regurg
- continue ASA/Plavix/BB/Imdur
Anemia of chronic kidney disease
- Hemoglobin 11.9, no active bleeding
- Continue to monitor
Essential HTN
- Observ BP
HLD
- statin
DVT Px: SQH
Full code
OBS TLM
--- NOTE | 2025-05-26 19:11 | EDRN ---
Informed in report pt requested tylenol and ROGELIO Amin contacted provider for order. This RN went into pt room to give tylenol and he said he already took a dose on his own and does not need any now. Pt informed he will be going up to his room in
few minutes.
[2025-05-26 20:04] VITALS: BP 104/51; BMI 28.1
[2025-05-26 20:26] VITALS: BMI 28.1
[2025-05-26] MEDS: RENVELA 800 MG PO (21:26)
[2025-05-26] MEDS: CRESTOR 10 MG PO (21:26)
[2025-05-26] MEDS: HEPARIN 5000 UNITS SC (21:26)
[2025-05-26 21:44] LABS: Glucose - Point of Care 181 mg/dl (70-99)
[2025-05-26 21:55] LABS: Troponin I 0.040 ng/ml
[2025-05-26] MEDS: NOVOLOG FLEXPEN-LOW RESISTANCE SC (22:02)
[2025-05-26] MEDS: LANTUS 0.05 UNITS SC (22:02)
[2025-05-26 23:57] VITALS: BP 112/53
[2025-05-27 00:07] LABS: Troponin I 0.028 ng/ml
[2025-05-27 03:16] VITALS: BP 122/65
[2025-05-27 06:10] VITALS: BMI 27.9
[2025-05-27] MEDS: RENVELA 800 MG PO ×3 (07:31→17:46)
[2025-05-27] MEDS: HEPARIN 5000 UNITS SC ×2 (07:31→20:43)
[2025-05-27] MEDS: NEPHROCAP 1 CAPSULE PO (07:31)
[2025-05-27] MEDS: PROTONIX 40 MG PO (07:33)
[2025-05-27 07:34] LABS: Hematocrit 35.6 % (39.0-52.0); Hemoglobin 11.5 g/dL (13.0-18.0); Mean Corp Hgb Conc. 32.3 g/dL (33.0-37.0); Mean Corpuscular Volume 83.0 fL (80.0-94.0); Platelet Count 192 10^3/uL (130-400); Red Cell Dist. Width 18.6 % (11.5-14.5)
[2025-05-27 07:40] LABS: Glucose - Point of Care 177 mg/dl (70-99)
[2025-05-27] MEDS: TOPROL XL PO (07:46)
[2025-05-27] MEDS: NOVOLOG FLEXPEN-LOW RESISTANCE 1 UNITS SC (08:00)
[2025-05-27 08:04] LABS: Blood Urea Nitrogen 63 mg/dl (9-20); Calcium 8.5 mg/dl (8.4-10.2); Carbon Dioxide 30 mmol/L (22-30); Chloride 94 mmol/L (98-107); Estimated Creatinine Clearance 8 ml/min; Glucose 163 mg/dl (70-99); HDL Cholesterol 38 mg/dl; LDL Cholesterol, Calculated 57 mg/dl; Potassium 5.9 mmol/L (3.5-5.1); Sodium 137 mmol/L (135-145); Very Low Density Lipoprotein 20 mg/dl (0-30); eGFR 6.63
[2025-05-27 08:06] LABS: Troponin I 0.028 ng/ml
[2025-05-27 08:32] VITALS: BP 126/69
[2025-05-27] MEDS: FLEXBUMIN 25% FOR HEMODIALYSIS 12.5 GRAMS IV ×2 (09:05→10:50)
[2025-05-27] MEDS: MANNITOL 25% 12.5 GRAMS IV ×2 (09:10→10:00)
--- NOTE | 2025-05-27 10:52 | W.PN.NEPH.HD ---
Assessment
-
Patient seen on dialysis
Systolic blood pressure stable at 145 at current UF
Albumin and mannitol utilized for hemodynamic support
Patient's next dialysis will be scheduled for Thursday
There is nothing else that I can add at this point
Unfortunately the patient has end-stage ischemic cardiomyopathy which continues to complicate his dialysis procedures due to hemodynamic instability cramping and angina
Progress Note - Hemodialysis
-
Date of Service: May 27, 2025
Duration: 30 minutes and 3 hours
Potassium Bath: 2
Calcium Bath: 2.5
Opti-Dialyzer: 160
Ultrafiltration: Other (2-1/2 kg as hemodynamically tolerate)
Blood Flow: 400
Dialysate Flow: 600
Heparin: None
EPO: None
--- NOTE | 2025-05-27 11:07 | W.PN.CARDCBS ---
Today's Communication / Plan
-
Stable angina
Try higher dose of Imdur 30 mg p.o. twice daily
May need to consider midodrine on a daily basis
Updated with primary service
Impression / Plan
-
Primary Computer Assembler: Dr. Guzman of [facility]
Assessment:
-Presentation with primary complaints of leg cramping and difficulty pulling fluid on HD. He is chronically SOB when laying back. Volume status managed by HD
-Likely chronic HFpEF
-Hyperkalemia
-Detectable trops but within normal range
-CAD s/p CABG ALMAZAN to LAD, SVG to OM-2 and OM-3, SVG to PDA, SVG to Diag
cath with stents to SVG to OM1�OM 3 and SVG to PDA 2015
Cath at [facility] - Diffuse disease in distal LAD after ALMAZAN touchdown, SVG to OM 2 and OM 3 with patent stent but there is a small OM 2 with 90% stenosis past touchdown, SVG to PDA occluded (changed from 2015), SVG to diagonal known to be occluded
11/29/18
Cath at with Patent ALMAZAN to LAD and patent but diseased SVG to OM 2 and OM 3. Known occluded SVG to PDA and SVG to diagonal. resulting in complex PTCA through the SVG to OM1 and OM 3 of the OM1 and 3.0/8 mm stenting of the SVG sequential portion
from OM1 to OM 3 12/2020
Cath at with occluded SVG-OM2-OM3 within previously placed stents 03/24/23
Stable angina, requires 3-4 SL nitro per tvs-[id number]-nquyg renal disease on hemodialysis-Chronic HFpEF
-History of bradycardia and relative hypotension
-Diabetes mellitus
-History of pancreatitis
-Reported carotid stenosis
Echo 12/13/20: EF 55-60%, possible small arrea of mid anteroseptal hypokinesis, mild MR, trace TR with PAP 37 mmHg
Cath: as outlined under HPI
ECHO 05/14/21: EF 55-60%, mild cLVH, mild MR, MAC, aortic sclerosis, normal right heart, mild TR, borderline pulm HTN, PAP 30-35mmHg, posterior pericardial calcification
ECHO 01/24/2022: LV: Normal size and function.� EF 55-60%.� Mild LVH.� RV: Normal, LA: Normal, RA: Normal, MV: Trace MR, AV: Sclerotic.� No AI.� TV: Trace TR
ECHO 03/23/23: EF 55 to 60%, hypokinesis of apical lateral wall, mild MR
ECHO 05/12/25: EF: 50-55%, distal anterolateral wall CA, mild LVH. RV: Normal, LA: Normal, RA: Normal, AV: Sclerotic, MV: Mild-mod MR, TV: Mild TR with mod PHTN 5.0 mmHg
Plan:
He has a stable anginal pattern with 3-5 nitroglycerin per day
Treatment of angina has been complicated due to hypotension which resulted in amlodipine being discontinued and he gets midodrine while on dialysis
Will try to increase Imdur to 30 mg p.o. twice daily if blood pressure allows
May need to consider chronic dose of midodrine on a daily basis.
Progress Note - Computer Assembler
Subjective
Date of Service: May 27, 2025
No complaints
Objective
Labs:
05/27/25 07:19
05/27/25 07:19
Labs
Hgb 11.5 g/dL (13.0-18.0) L 05/27/25 07:19
Hct 35.6 % (39.0-52.0) L 05/27/25 07:19
Plt Count 192 10^3/uL (130-400) 05/27/25 07:19
Sodium 137 mmol/L (135-145) 05/27/25 07:19
Potassium 5.9 mmol/L (3.5-5.1) H 05/27/25 07:19
BUN 63 mg/dl (9-20) H 05/27/25 07:19
Creatinine 7.8 mg/dL (0.7-1.3) H* 05/27/25 07:19
Glucose 163 mg/dl (70-99) H 05/27/25 07:19
Troponins
05/26/25 05/26/25 05/26/25
14:07 21:11 22:53
Troponin I 0.039 H* 0.040 H* Cancelled
05/26/25 05/27/25
23:27 07:19
Troponin I 0.028 D 0.028
Vital Signs and I&O:
Vital Signs
Temp Pulse Resp BP Pulse Ox
97.8 F 75 20 126/69 100
05/27/25 08:32 05/27/25 08:32 05/27/25 08:32 05/27/25 08:32 05/27/25 08:32
Vital Signs
Temp Pulse Resp BP Pulse Ox
97.8 F 75 20 126/69 100
05/27/25 08:32 05/27/25 08:32 05/27/25 08:32 05/27/25 08:32 05/27/25 08:32
Physical Exam
Physical Exam
General: Well developed, well nourished in NAD.
Neck: Supple, no JVD, HJR, carotids +2 B/L, no bruits bilaterally.
Heart: Non displaced PMI, RRR, no murmurs, No S3, S4, no rubs.
Lungs: Scattered rhonchi
Extremities: No clubbing, cyanosis or edema bilaterally.
Neuro: Grossly nonfocal, awake, alert and oriented x3.
--- NOTE | 2025-05-27 11:07 | W.PN.HOSP.TC ---
Today's Communication/Plan
-
Monitor vital signs see plan
HD today
Albumin, mannitol, midodrine given during HD for hypotension
Discussed with cardiology, increase Imdur
Assessment / Plan
Assessment / Plan
General: Well Developed, Well Nourished and No Apparent Distress
HEENT: NormoCephalic, Moist mucous membranes and Atraumatic
Respiratory: Decreased Breath Sounds
Cardiac: S1/S2 and Regular Rhythm; No Murmur or Rub
GI: Soft, Non Tender, Non Distended and Normal Bowel Sounds
Musculoskeletal: Edema
Neuro: AO x 3 and Nonfocal/grossly intact
Psych: Calm
recurrent Chest pain/short of breath/cough
# Chronic coronary artery disease s/p CABG and stent
# likely non ischemic myocardial injury from Chronic trop elevation in setting of CKD
- Chest x-ray with small bilateral pleural effusion, cardiomegaly
- EKG with sinus rhythm with first-degree AV block
-asa,Plavix,Imdur,metoprolol continued. Discussed with cardiology, increase Imdur
-cardiology following
# Anemia of chronic disease
- Hemoglobin stable, no active bleed
- Continue to monitor
# End-stage renal disease on dialysis
Hyperkalemia, managed through HD
- Nephrology following, HD 05/27. Appears ultrafiltration has been limited outpatient due to patient having pain and hypotension. On midodrine. Mannitol, albumin given during HD 05/27
-cinacalcet,renal shala,sevelamer continued
#Chronic respiratory failure on 3l at home
- wean o2 as able
#GERD
-PPI continued
#Essential HTN
- continue BP meds
#HLD - statin
#Type 2 DM
- continue Lantus 5 HS
-sliding scale
- Diabetic diet
DVT ppx: SC heparin
Code: Full
Anticipated Discharge: 24 - 48 hours
Subjective/Interval History
-
Date of Service: May 27, 2025
has pain at times
Objective Data
-
Labs:
Laboratory Results
05/27/25
07:19
WBC 7.5
Hgb 11.5 L
Hct 35.6 L
Plt Count 192
Sodium 137
Potassium 5.9 H
Chloride 94 L
Carbon Dioxide 30
BUN 63 H
Creatinine 7.8 H*
Glucose 163 H
Calcium 8.5
Vital Signs:
Vital Signs
Temp Pulse Resp BP Pulse Ox
97.8 F 75 20 126/69 100
05/27/25 08:32 05/27/25 08:32 05/27/25 08:32 05/27/25 08:32 05/27/25 08:32
[2025-05-27 11:42] LABS: Glucose - Point of Care 129 mg/dl (70-99)
[2025-05-27] MEDS: NOVOLOG FLEXPEN-LOW RESISTANCE SC (11:52)
[2025-05-27 12:28] VITALS: BP 135/81
[2025-05-27] MEDS: ASPIR LOW (ENTERIC COATED) 81 MG PO (14:11)
[2025-05-27] MEDS: PLAVIX 75 MG PO (14:11)
[2025-05-27] MEDS: SENSIPAR 60 MG PO (14:11)
--- NOTE | 2025-05-27 16:12 | CM ---
Initial assessment completed with patient who lives with his and adult son in a 2 story plus basement home with B/B on 1st, 2 steps to enter. 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 Uses a rollator for longer distances. Has a RW but uses as
needed. Requires some assist with ADL's and bathing. Is on O2 3L NC continuously. Has concentrator and tanks. Is on Hemodialysis at [facility] in [place] with chair time on at 6:30AM. He receives HH services with [facility] for RN,
PT/OT and PASTRY SUPERVISOR. Does have HC-POA. No VA benefits. No psychiatric hospitalizations. PCP is Dr. Edward Robbins. Pharmacy is [facility] in [place]. Discharge POC: Anticipate home with resumption of [facility] for RN, PT/OT and PASTRY SUPERVISOR. PAUL signed.
[2025-05-27 16:43] VITALS: BP 109/45
[2025-05-27 16:58] LABS: Glucose - Point of Care 205 mg/dl (70-99)
[2025-05-27] MEDS: NOVOLOG FLEXPEN-LOW RESISTANCE 2 UNITS SC (17:46)
[2025-05-27 19:26] VITALS: BP 113/47
[2025-05-27 20:40] LABS: Glucose - Point of Care 207 mg/dl (70-99)
[2025-05-27] MEDS: IMDUR (EXTENDED RELEASE) 30 MG PO (20:44)
[2025-05-27] MEDS: LANTUS 0.05 UNITS SC (22:24)
[2025-05-27] MEDS: CRESTOR 10 MG PO (22:43)
[2025-05-27 23:51] VITALS: BP 114/55
[2025-05-28 03:35] VITALS: BP 118/68
[2025-05-28 07:45] LABS: Glucose - Point of Care 213 mg/dl (70-99)
[2025-05-28 08:11] VITALS: BP 125/86
[2025-05-28] MEDS: NOVOLOG FLEXPEN-LOW RESISTANCE 2 UNITS SC ×2 (08:16→13:00)
[2025-05-28] MEDS: HEPARIN 5000 UNITS SC (08:16)
[2025-05-28] MEDS: NEPHROCAP 1 CAPSULE PO (08:18)
[2025-05-28] MEDS: RENVELA 800 MG PO ×2 (08:18→13:01)
[2025-05-28] MEDS: PROTONIX 40 MG PO (08:18)
[2025-05-28] MEDS: TOPROL XL 50 MG PO (08:19)
[2025-05-28] MEDS: IMDUR (EXTENDED RELEASE) 30 MG PO (08:19)
[2025-05-28 10:12] LABS: Hematocrit 33.1 % (39.0-52.0); Hemoglobin 10.6 g/dL (13.0-18.0); Mean Corp Hgb Conc. 32.0 g/dL (33.0-37.0); Mean Corpuscular Volume 85.8 fL (80.0-94.0); Platelet Count 160 10^3/uL (130-400); Red Cell Dist. Width 18.1 % (11.5-14.5)
--- NOTE | 2025-05-28 10:30 | W.PN.NEPH.PH ---
Today's Communication / Plan
-
Stable for discharge which is next dialysis on Thursday at his home you
Assessment/Plan
-
Impression:
ESRD Thursday at [facility]
SOB
decompensated HFpEF
Profound cramping on dialysis
chronic respiratory failure on 3l at home
Elevated troponin in setting of end-stage renal disease
Known CAD with CABG x5 in 2003 at [facility], Post CABG stenting x2 with 1 stent occluded and 1-2 grafts occluded
cath 03/2023 without interventional options
Diabetes mellitus 2
Hypertension, multidrug
hypotension on HD with midodrine
Anemia of CKD
Left arm AV fistula
2pth
Hyperphosphatemia
Plan:
- Next dialysis will be provided Thursday, I will do my best to ultrafiltrate him and support his blood pressure with midodrine mannitol and albumin (but these interventions are not available in the outpatient units)
-I explained the constraints of not being able to use some of our measures that we use in the hospital here in his outpatient unit
-I did explain to him that unfortunately his end-stage ischemic cardiomyopathy is complicating our ability to dialyze him effectively, we may be approaching an endpoint with dialysis as it may no longer be clinically feasible
-He agreed for discharge today and we will follow-up with him on dialysis on Thursday
- HUMBERTO therapy will be provided for anemia
- Maintain sevelamer for hyperphosphatemia
- Maintain Cinacalcet for secondary hyperparathyroidism
- Provide midodrine on dialysis to support hemodynamically during UF
Unfortunately the patient's ischemic cardiomyopathy is hindering our ability to dialyze him. Hemodynamically it is becoming more difficult to UF him due to his ischemic cardiac burden
He cramps on dialysis persistently likely due to decreased perfusion pressure from his ischemic cardiomyopathy and likely the existence of peripheral vascular disease
I will however check magnesium levels
I believe the patient is at stage in regards to his ischemic cardiomyopathy, for which he has chronic ongoing angina
Cardiology no longer has any beneficial interventions to offer
-
-
Date of Service: May 28, 2025
CC / HPI / ROS
-
Chief Complaint:
ESRD
History of Present Illness:
ESRD on Thursday schedule
Currently hemodynamically stable
Review of Systems:
Remains on O2
No current chest pain
Labs
-
Labs:
WBC 5.3 10^3/uL (4.8-10.8) 05/28/25 08:45
RBC 3.86 10^6/uL (4.70-6.10) L 05/28/25 08:45
Hgb 10.6 g/dL (13.0-18.0) L 05/28/25 08:45
Hct 33.1 % (39.0-52.0) L 05/28/25 08:45
Plt Count 160 10^3/uL (130-400) 05/28/25 08:45
eGFR 6.63 05/27/25 07:19
Physical Exam
-
Vital Signs:
Vital Signs
Temp Pulse Resp BP Pulse Ox
98.6 F 81 19 125/86 91
05/28/25 08:11 05/28/25 08:19 05/28/25 08:11 05/28/25 08:19 05/28/25 08:11
Cardiovascular:: Regular rate and rhythm
Respiratory:: Bilateral: Coarse
Lung Excursion:: Normal
Abdomen:: Distended
Bowel Sounds:: Decreased
Extremity Edema:: +1: Bilateral:
Suazo Catheter: No
[2025-05-28 10:41] LABS: Blood Urea Nitrogen 48 mg/dl (9-20); Calcium 8.1 mg/dl (8.4-10.2); Carbon Dioxide 30 mmol/L (22-30); Chloride 89 mmol/L (98-107); Estimated Creatinine Clearance 10 ml/min; Glucose 221 mg/dl (70-99); Potassium 4.6 mmol/L (3.5-5.1); Sodium 132 mmol/L (135-145); eGFR 8.57
--- NOTE | 2025-05-28 10:42 | W.PN.HOSP.TC ---
Today's Communication/Plan
-
Monitor vital signs and see plan
Discussed with cardiology and nephrology, okay to discharge today
HD outpatient on Thursday per nephrology
Patient to follow-up with cardiology at [place] outpatient
Time of discharge 37 minutes
Assessment / Plan
Assessment / Plan
General: Well Developed, Well Nourished and No Apparent Distress
HEENT: NormoCephalic, Moist mucous membranes and Atraumatic
Respiratory: Decreased Breath Sounds
Cardiac: S1/S2 and Regular Rhythm; No Murmur or Rub
GI: Soft, Non Tender, Non Distended and Normal Bowel Sounds
Musculoskeletal: Edema
Neuro: AO x 3 and Nonfocal/grossly intact
Psych: Calm
recurrent Chest pain/short of breath/cough
# Chronic coronary artery disease s/p CABG and stent
# likely non ischemic myocardial injury from Chronic trop elevation in setting of CKD
- Chest x-ray with small bilateral pleural effusion, cardiomegaly
- EKG with sinus rhythm with first-degree AV block
-asa,Plavix,Imdur,metoprolol continued. Discussed with cardiology, increased Imdur
-cardiology following
Discussed with cardiology and nephrology, majority of patient's symptoms are chronic in nature and is running out of options. Recommended patient to follow-up with his outpatient placement interviewer and possibly discuss palliative care.
# Anemia of chronic disease
- Hemoglobin stable, no active bleed
- Continue to monitor
# End-stage renal disease on dialysis
Hyperkalemia, managed through HD
- Nephrology following, HD 05/27. Appears ultrafiltration has been limited outpatient due to patient having pain and hypotension. On midodrine. Mannitol, albumin given during HD 05/27
-cinacalcet,renal shala,sevelamer continued
#Chronic respiratory failure on 3l at home
- wean o2 as able
#GERD
-PPI continued
#Essential HTN
- continue BP meds
#HLD - statin
#Type 2 DM
- continue Lantus 5 HS
-sliding scale
- Diabetic diet
DVT ppx: SC heparin
Code: Full
Anticipated Discharge: Today
Subjective/Interval History
-
Date of Service: May 28, 2025
denies nausea
Objective Data
-
Labs:
Laboratory Results
05/28/25
08:45
WBC 5.3
Hgb 10.6 L
Hct 33.1 L
Plt Count 160
Sodium 132 L
Potassium 4.6
Chloride 89 L
Carbon Dioxide 30
BUN 48 H
Creatinine 6.3 H*
Glucose 221 H
Calcium 8.1 L
Vital Signs:
Vital Signs
Temp Pulse Resp BP Pulse Ox
98.6 F 81 19 125/86 91
05/28/25 08:11 05/28/25 08:19 05/28/25 08:11 05/28/25 08:19 05/28/25 08:11
I&O
05/27/25 05/28/25 05/29/25
06:59 06:59 06:59
Intake Total 1140 / 1140
Balance 1140 / 1140
--- NOTE | 2025-05-28 11:02 | W.DCSUMMARY ---
Discharge Summary
Discharge Data
Date of Admission: 05/26/25
Date of Discharge: 05/28/25
-
Pending Results: No
Hospital Course
75-year-old male with past medical history of coronary artery disease status post CABG, stent, chronic chest pain, anemia of chronic disease, ESRD on hemodialysis, chronic respiratory failure on 3 L oxygen, GERD, essential hypertension,
hyperlipidemia, type 2 diabetes mellitus came to the hospital with recurrent chest pain and shortness of breath. Patient was seen by cardiology and nephrology throughout hospitalization. Patient required hemodialysis while he was in the hospital.
It appeared from nephrology that patient has been having difficulty tolerating dialysis outpatient. For his chest pain cardiology increased his Imdur. Once his symptoms continue to improve, he was then discharged home with instructions to
follow-up with all his physicians outpatient. Cardiology and nephrology both reported that they are running out of options for his chest pain and shortness of breath and recommended palliative approach.
Discharge Plan
-
Patient Disposition: Home with Home Care
Discharge Diagnosis/Procedures: Chest pain
Anemia of chronic disease
End-stage renal disease on dialysis
Chronic CHF
Condition: Fair
Diet: As tolerated, 2 Gram Sodium and Other diet
Additional Diets: 40 ounce fluid restriction
Activity: As tolerated
Driving Restrictions: As prior to admission
Bathing Restrictions: None
Activity Restrictions/Additional Instructions:
Follow-up with your fire sprinkler fitter and principal network engineer outpatient
Referrals:
UNKNOWN - PT NOT,INTERVIEWE [Family Provider, Internal Medicine] - in less than 1 week
Prescriptions:
New
isosorbide mononitrate 30 mg Tablet Extended Release 24 Hr
30 mg PO BID Qty: 60 0RF
Continued
sevelamer carbonate 800 MG tablet
800 mg PO MEALS
cinacalcet 30 MG tablet
60 mg PO DAILY@1430
aspirin 81 MG tablet,delayed release (DR/EC)
81 mg PO DAILY@1430
clopidogrel 75 MG tablet
75 mg PO DAILY@1430
Patient Comments:
insulin lispro [Humalog KwikPen Insulin] 100 UNIT/ML insulin pen
1 - 5 unit SC AC PRN (Reason: Diabetes)
rosuvastatin 10 MG tablet
10 mg PO HS
metoprolol succinate 50 mg tablet extended release 24 hr
50 mg PO DAILY
Renal-Li 0.8 mg Tablet
1 tab PO DAILY
insulin glargine [Lantus Solostar U-100 Insulin] 100 unit/mL (3 mL) Insulin Pen
10 unit SC HS
acetaminophen 325 MG tablet
650 mg PO Q4HPRN PRN (Reason: mild pain/ASENCIO/temp>100.4F)
nitroglycerin 0.4 MG tablet, sublingual
0.4 mg sublingual [id number] PRN (Reason: chest pains)
pantoprazole 40 mg Tablet,Delayed Release (Dr/Ec)
40 mg PO DAILY Qty: 30 0RF
benzonatate 100 mg Capsule
200 mg PO TIDPRN PRN (Reason: cough) Qty: 30 0RF
midodrine 2.5 mg Tablet
2.5 mg PO DIRECTED
Rx Instructions:
give during dialysis on thursday and thursday
lorazepam 1 mg Tablet
1 mg PO DAILYPRN PRN (Reason: anxiety)
Discontinued
isosorbide mononitrate 30 mg Tablet Extended Release 24 Hr
30 mg PO QPM
Discharge Orders:
Discharge Patient (As Directed); Ordered 05/28/25
Ordered By: Maximus Pelayo
Discharge Date and Time
Discharge Date/Time: 05/28/25 15:23
Print Language: CHINESE
[2025-05-28 11:32] LABS: Glucose - Point of Care 206 mg/dl (70-99)
[2025-05-28 12:35] VITALS: BP 119/50
[2025-05-28 12:47] VITALS: BP 123/55; PULSE 73; O2SAT 100
[2025-05-28] MEDS: SENSIPAR 60 MG PO (13:35)
[2025-05-28] MEDS: ASPIR LOW (ENTERIC COATED) 81 MG PO (13:36)
[2025-05-28] MEDS: PLAVIX 75 MG PO (13:36)
[2025-05-28 13:42] VITALS: BP 123/55; PULSE 75; O2SAT 100
== END 2025-05-28 15:23 | disposition home health service (06) ==
LOC: 3 WEST ACU 15:56
PROVIDERS: Registered Nurse; ADMITTING PHYSICIAN Internal Medicine; ATTENDING PHYSICIAN Internal Medicine; CONSULT PHYSICIAN Internal Medicine Cardiovascular Disease; CONSULT PHYSICIAN Specialist; EMERGENCY PHYSICIAN Emergency Medicine
PROC: 5A1D70Z Performance of Urinary Filtration, Intermittent, Less than 6 Hours Per Day (ICD-10-PCS; 2025-05-27)
DX: R07.89 Other chest pain (principal); E11.22 Type 2 diabetes mellitus with diabetic chronic kidney disease; N18.6 End stage renal disease; I50.32 Chronic diastolic (congestive) heart failure; D63.1 Anemia in chronic kidney disease; J96.10 Chronic respiratory failure, unspecified whether with hypoxia or hypercapnia; K21.9 Gastro-esophageal reflux disease without esophagitis; E78.00 Pure hypercholesterolemia, unspecified; E83.39 Other disorders of phosphorus metabolism; E87.5 Hyperkalemia; I13.2 Hypertensive heart and chronic kidney disease with heart failure and with stage 5 chronic kidney disease, or end stage renal disease; I95.3 Hypotension of hemodialysis; I25.10 Atherosclerotic heart disease of native coronary artery without angina pectoris; I25.5 Ischemic cardiomyopathy; I25.810 Atherosclerosis of coronary artery bypass graft(s) without angina pectoris; Z79.4 Long term (current) use of insulin; Z79.82 Long term (current) use of aspirin; Z79.899 Other long term (current) drug therapy; Z87.891 Personal history of nicotine dependence; Z99.2 Dependence on renal dialysis; Z86.73 Personal history of transient ischemic attack (TIA), and cerebral infarction without residual deficits
CPT/HCPCS: 71046; 80048; 80061; 82962; 84484; 85025; 85027; 87070; 93005; 97162; 97166; 99285; G0257; G0378; P9047

== ENCOUNTER 2025-07-14 18:07 | Emergency (ER) | payer OTHER, SELFPAY ==
[2025-07-14 18:09] VITALS: BP 114/53
[2025-07-14 18:29] LABS: Hematocrit 41.2 % (39.0-52.0); Hemoglobin 13.3 g/dL (13.0-18.0); Mean Corp Hgb Conc. 32.3 g/dL (33.0-37.0); Mean Corpuscular Volume 87.7 fL (80.0-94.0); Nucleated Red Blood Cells % 0 % (-); Platelet Count 147 10^3/uL (130-400); Red Cell Dist. Width 17.6 % (11.5-14.5)
[2025-07-14 18:49] LABS: ALT (SGPT) 23 U/L (0-50); AST (SGOT) 32 U/L (17-59); Albumin 4.5 g/dl (3.5-5.0); Alkaline Phosphatase 98 U/L (38-126); Blood Urea Nitrogen 45 mg/dl (9-20); Calcium 7.9 mg/dl (8.4-10.2); Carbon Dioxide 30 mmol/L (22-30); Chloride 93 mmol/L (98-107); Glucose 117 mg/dl (70-99); Sodium 134 mmol/L (135-145); Total Protein 8.1 g/dl (6.3-8.2); eGFR 8.57
[2025-07-14 18:50] LABS: Potassium 5.1 mmol/L (3.5-5.1)
--- NOTE | 2025-07-14 19:46 | ED.GENMED ---
History of Present Illness
General
Chief Complaint: Swelling
Source: patient and family
Exam Limitations: none
Time Seen by Provider: 07/14/25 19:35
History of Present Illness
History of Present Illness:
75yoM with a history of ESRD on hemodialysis T//, insulin-dependent type 2 diabetes, coronary artery disease s/p CABG, CHF, hypertension, and hyperlipidemia presenting with his daughter for evaluation of left lower leg pain and redness. He
started with left groin pain earlier this week. Over the last 24 hours, he started to experience a burning pain in his left calf with associated redness and warmth. He has a chronic wound to the left foot for the past 4 months and has a visiting
nurse who performs dressing changes. He states the wound is gradually improving. No drainage from the wound. No fevers, chills, chest pain, shortness of breath. He is otherwise feeling well. He was last dialyzed yesterday.
Past History
Past History
ED Past Medical History: CAD, CVA, HTN, Hypercholesterolemia, NIDDM, CO, Renal failure and Other (On dialysis Thursday)
ED Past Surgical History: Cardiac and Other
Social History
Tobacco: Former smoker
Alcohol: None
Drug: None
Personal:
Living: with family
Employment: Retired
Family History
Family History: Hypertension
Phy Exam
General Physical Exam
General Presentation: well appearing and no apparent distress
General Skin: warm and dry
General Habitus: normal
General Mental: alert
ENT Exam
ENT Exam: normocephalic
Pulmonary Exam
Pulmonary Exam: lungs clear, no respiratory distress, no rales, no crackles, no rhonchi and no wheezing
Neurological Exam
Neurological Exam: alert
[place] Coma Scale
Eye Opening: Spontaneous
Verbal Response: Oriented
Motor Response: Obeys Commands
GCS Total Score: 15
Skin Exam
Skin Exam: other (Erythema noted to anterior L lower leg with warmth and pitting edema. No circumferential erythema. Wound noted to dorsum of L foot without purulence or signs of wound infection. Erythema does not involve wound. Strong DP doppler
signal. )
Psychiatric Exam
Psychiatric Exam: normal mood/affect
Scores
Heart Failure Risk
Heart Failure Risk Score: Not Applicable
Course
Orders/Labs/Results
Orders:
Orders
07/14/25 18:15
Venous Doppler Lwr Ext Left [US Perip Venous LOWER Ext LT] Urgent
Comment:
Reason For Exam: swelling, redness, warmth, pain
07/14/25 18:18
Complete Blood Count/With Diff Urgent
Comprehensive Metabolic Panel Urgent
07/14/25 21:56
Cephalexin Monohydrate [Keflex] 500 mg PO NOW STA
Abnormal Lab Results
07/14/25
18:18
MCHC 32.3 L g/dL
(33.0-37.0)
RDW 17.6 H %
(11.5-14.5)
MPV 10.9 H fL
(7.4-10.4)
Absolute Lymphs (auto) 1.0 L 10^3/uL
(1.2-3.4)
Absolute Monos (auto) 0.7 H 10^3/uL
(0.1-0.6)
Lymphocytes % 16.4 L %
(20.5-51.1)
Monocytes % 12.5 H %
(1.7-9.3)
Sodium 134 L mmol/L
(135-145)
Chloride 93 L mmol/L
(98-107)
BUN 45 H mg/dl
(9-20)
Creatinine 6.3 H* mg/dL
(0.7-1.3)
Glucose 117 H mg/dl
(70-99)
Calcium 7.9 L mg/dl
(8.4-10.2)
07/14/25 18:18
07/14/25 18:18
Vital Signs
Initial and Last Documented VS:
Initial Vital Signs
Pulse Resp BP Pulse Ox
73 16 114/53 96
07/14/25 18:09 07/14/25 18:09 07/14/25 18:09 07/14/25 18:09
Last Documented Vital Signs
Temp Pulse Resp BP Pulse Ox
97.7 F 75 14 121/60 99
07/14/25 22:16 07/14/25 21:54 07/14/25 21:00 07/14/25 21:54 07/14/25 21:54
MDM/Problems Addressed
Differential Diagnosis Includes:
75yoM here with L lower leg redness and burning pain x 1 day. No f/c. VSS. Patient nontoxic-appearing. Localized erythema and warmth noted to the left anterior lower leg with associated pitting edema. LLE is neurovascularly intact. Differential
diagnosis includes: Cellulitis, venous stasis, DVT
Lab work obtained in triage and white count within normal limits. Remainder of labs consistent with known ESRD. Venous duplex obtained which is negative for DVT. Mild reactive left inguinal adenopathy noted. Clinical presentation consistent with
cellulitis. Patient not meeting any SIRS criteria. No indication for hospitalization. Will trial course of Keflex, first dose given in ED. Patient advised to follow-up closely with PCP and strict ED return precautions reviewed. Patient and
daughter in agreement with plan and he was discharged in stable condition.
*Pulse Oximetry
SaO2: 96
Oxygen Mode of Delivery: Room air
Patient hypoxic: no
*Critical Care Note
Total Time (30-74mins, 75-104mins- exclusive of procedures): Not Applicable
ED Attending Note
-
Portions of this chart may have been created with voice recognition software.� Occasional wrong word or��sound alike� substitutions may have occurred due to the inherent limitations of voice recognition software.
Discharge Plan
Departure
Patient Disposition: Home (Routine Discharge)
Date of Disposition: 07/14/25
Time of Disposition: 22:01
Patient with high blood pressure during this ER visit?: No
Discharge Problem:
Cellulitis of left lower extremity
Instructions: Cellulitis (skin infection) in adults (DC)
Prescriptions:
New
cephalexin 500 mg capsule
500 mg PO Q6H 7 Days Qty: 27 0RF
No Action
sevelamer carbonate 800 MG tablet
800 mg PO MEALS
cinacalcet 30 MG tablet
60 mg PO DAILY@1430
aspirin 81 MG tablet,delayed release (DR/EC)
81 mg PO DAILY@1430
clopidogrel 75 MG tablet
75 mg PO DAILY
Patient Comments:
insulin lispro [Humalog KwikPen Insulin] 100 UNIT/ML insulin pen
4 sliding scale dose SC AC
rosuvastatin 10 MG tablet
10 mg PO HS
metoprolol succinate 50 mg tablet extended release 24 hr
50 mg PO QPM
Renal-Li 0.8 mg Tablet
1 tab PO DAILY
insulin glargine [Lantus Solostar U-100 Insulin] 100 unit/mL (3 mL) Insulin Pen
10 unit SC HS
acetaminophen 325 MG tablet
650 mg PO Q4HPRN PRN (Reason: mild pain/ASENCIO/temp>100.4F)
midodrine 2.5 mg Tablet
2.5 mg PO DIRECTED
Rx Instructions:
give during dialysis on thursday and thursday
lorazepam 1 mg Tablet
1 mg PO DAILYPRN PRN (Reason: anxiety)
sevelamer carbonate 800 mg Tablet
800 mg PO DAILYPRN PRN (Reason: with snacks)
isosorbide mononitrate 30 mg tablet extended release 24 hr
30 mg PO QPM
pantoprazole 40 mg tablet,delayed release (DR/EC)
40 mg PO QPM
Referrals:
Edward Robbins DO [Family Provider, Family Practice]
Activity Restrictions/Additional Instructions:
Take antibiotics as prescribed.
Please follow-up with your family doctor in the next 2 to 3 days. Return to the ER with any worsening symptoms including spreading redness, fevers, chills, or if your symptoms do not improve in the next 3 to 4 days
Interventions
Interventions:
*Risk Screen - Suicide Last Done: 07/14/25 18:09
*General Assessment Last Done: 07/14/25 18:09
*Neglect/Abuse Screening Last Done: 07/14/25 18:09
*ED COVID-19 Vaccine History Last Done: 07/14/25 18:09
*ED Influenza Vaccine History Last Done: 07/14/25 18:09
[facility] Risk Assessment Tool Last Done: 07/14/25 21:46
*Nursing Disposition Last Done: 07/14/25 22:16
ED- Cardiac Assessment Last Done: 07/14/25 19:59
ED- Pulmonary Assessment Last Done: 07/14/25 19:59
ED-Skin Assessment Last Done: 07/14/25 19:59
Discharge Date and Time
Print Language: PUERTO RICAN
[2025-07-14 19:53] VITALS: BP 120/92
[2025-07-14 20:00] VITALS: BP 118/62
[2025-07-14 21:00] VITALS: BP 93/53
[2025-07-14 21:54] VITALS: BP 121/60
[2025-07-14] MEDS: KEFLEX 500 MG PO (22:12)
== END 2025-07-14 22:16 | disposition home or self-care (01) ==
LOC: EMR 18:07
PROVIDERS: Emergency Medicine; EMERGENCY PHYSICIAN Emergency Medicine; FAMILY PHYSICIAN Family Medicine
DX: L03.116 Cellulitis of left lower limb (principal); M79.662 Pain in left lower leg; I25.10 Atherosclerotic heart disease of native coronary artery without angina pectoris; I13.2 Hypertensive heart and chronic kidney disease with heart failure and with stage 5 chronic kidney disease, or end stage renal disease; E11.22 Type 2 diabetes mellitus with diabetic chronic kidney disease; N18.6 End stage renal disease; E78.00 Pure hypercholesterolemia, unspecified; Z82.49 Family history of ischemic heart disease and other diseases of the circulatory system; Z86.73 Personal history of transient ischemic attack (TIA), and cerebral infarction without residual deficits; Z87.891 Personal history of nicotine dependence; Z95.1 Presence of aortocoronary bypass graft; Z99.2 Dependence on renal dialysis
CPT/HCPCS: 99284; 80053; 85025; 93971